=== PATIENT | female | born 1980 | race Caucasian/White ===

== ENCOUNTER 2017-01-30 07:59 | Emergency (ER) | payer BC, SELFPAY ==
[2017-01-30] MEDS ORDERED: Albuterol Sulfate 2.5 mg/0.5 ml Neb ONE (08:09)
[2017-01-30] MEDS ORDERED: Albuterol Sulfate 2.5 mg/3 ml Neb ONE (08:09)
[2017-01-30] MEDS ORDERED: Magnesium Sulfate 2 GM/100 ML BAG ONE (08:13)
[2017-01-30] MEDS ORDERED: methylPREDNISolone Sod Succ/PF 125 MG/2 ML VIAL ONE (08:13)
[2017-01-30] MEDS ORDERED: Water For Inject, Bacteriostat 30 ML ONE (08:14)
--- NOTE | 2017-01-30 09:56 | RAD ---
CHEST 1 VIEW: HISTORY: Dyspnea. Tachypnea. COMPARISON: 03/28/16. FINDINGS: Cardiac silhouette is within normal limits. Mediastinum is midline. Subtle parenchymal opacity at the right middle lobe partially obscures the right cardiac margin. No evidence of pneumothorax. IMPRESSION: Subtle right middle lobe parenchymal opacity may represent atelectasis or infiltrate. Clinical emily elation regarding other signs and symptoms of right middle lobe pneumonitis is required. Please con rotary drier operator close radiographic followup. POS: [facility]
== END 2017-01-30 10:09 | disposition home or self-care (01) ==
LOC: ERS 07:59
DX: J45.901 Unspecified asthma with (acute) exacerbation (principal); J18.9 Pneumonia, unspecified organism; F17.210 Nicotine dependence, cigarettes, uncomplicated; Z79.899 Other long term (current) drug therapy
CPT/HCPCS: 71010; 94640; 94760; 96365; 96375; J2930; J3475; J7611

== ENCOUNTER 2017-05-04 12:57 | Emergency (ER) | payer BC ==
[2017-05-04] MEDS ORDERED: Albuterol Sulfate 2.5 mg/3 ml Neb ONE ×2 (13:31→16:19)
[2017-05-04] MEDS ORDERED: Magnesium Sulfate 2 GM/NS 0.9% 50 ML BAG ONE (13:42)
[2017-05-04] MEDS ORDERED: Dexamethasone 4 mg/ml Vial ONE (13:42)
[2017-05-04 13:43] LABS: #Basophils 0.1 thou/uL (0.0-0.2); #Eosinphils 1.1 thou/uL (0.0-0.7); #Lymphocytes 2.8 thou/uL (1.20-3.40); #Monocytes 0.6 thou/uL (0.11-0.59); #Neutrophils 4.7 thou/uL (1.40-6.50); %Basophils 1.5 % (0.0-1.0); %Eosinophils 11.5 % (0.0-10.0); %Monocytes 6.1 % (0.0-10.0); %Neutrophils 50.8 % (42.0-75.0); Mean Corpuscular HGB CONC 32.4 g/dL (32.0-36.0); Mean Corpuscular Hemoglobin 31.5 pg (27.0-31.0); Mean Corpuscular Volume 97.2 fl (81.0-99.0); Mean Platelet Volume 9.4 fL (7.4-10.4); Platelet Count 291 thou/uL (130-400); RBC Distribution Width 13.4 % (11.5-14.5); Red Blood Cell (RBC) Count 4.76 mill/uL (4.20-5.40); White Blood Cell (WBC) Count 9.3 thou/uL (4.8-10.8)
[2017-05-04 13:47] LABS: Actual Bicarbonate (HCO3a) 22.4 mEq/L (22-26); Base Excess (BEa) -4.5 mEq/L (0 (+/-) 2.5); CO2 Tension 48.6 mmHg (35.0-45.0); Calcium, Ionized 1.3 mmol/L (1.12-1.30); Hematocrit-ABG 43.7 % (36.0-47.0); Hemoglobin (Hb) 14.1 g/dL (12.0-16.0); O2 Tension (PaO2) 117.9 mmHg (80.0-100.0); pH, Arterial 7.28 (7.35-7.45)
[2017-05-04 13:51] LABS: Analyzer IN Cardio ER; Puncture Site RRA
--- NOTE | 2017-05-04 14:07 | RAD ---
FRONTAL RADIOGRAPH CHEST: Date: 05-04-17 Comparison: 03-05-17 History: Difficulty breathing. FINDINGS: There is no pneumothorax or pleural fluid and no focal consolidation or alveolar edema. Heart and med iastinal contours are unremarkable. IMPRESSION: No acute findings. POS: [facility]
[2017-05-04 14:08] LABS: CKMB 2.2 ng/mL (0-6.6); Troponin I Less than 0.010 ng/mL (< 0.028)
[2017-05-04 14:10] LABS: BHCG - Serum Negative (NEGATIVE); Pregs Control Background? CLEAR/WHITE (CLR/WHITE); Pregs Control Bar Appear? YES (CONTROL BAR)
[2017-05-04 14:57] LABS: ALT (SGPT) 15 U/L (8-55); AST (SGOT) 20 U/L (5-34); Alkaline Phosphatase 71 U/L (40-150); Anion Gap 12 mmol/L (10-20); BUN (Urea Nitrogen) 5 mg/dL (7.0-18.7); Bilirubin, Total 0.3 mg/dL (0.2-1.2); CK (CPK) 194 U/L (29-168); Calc. Creatinine Clearance 0 mL/min (70-130); Calcium 9.1 mg/dL (7.8-10.44); Carbon Dioxide 20 mmol/L (22-29); Chloride 113 mmol/L (98-107); Estimated GFR-MDRD 84; Globulin 2.6 g/dL (2.4-3.5); Glucose 112 mg/dL (70-105); Potassium 4.5 mmol/L (3.5-5.1); Protein, Total 6.6 g/dL (6.0-8.3); Sodium 140 mmol/L (136-145)
[2017-05-04 16:45] LABS: Bilirubin Negative (Negative); Blood, Urine Negative (Negative); Clarity CLEAR (Clear); Glucose, Urine (Dipstick) Negative (Negative); Leukocyte Small (Negative); Nitrite Negative (Negative); Protein, Urine (Dipstick) Negative (Neg-Trace); Specific Gravity, Urine 1.019 (1.002-1.036); Urobilinogen 0.2 mg/dL (0.2-1.0)
[2017-05-04 16:49] LABS: Bacteria/HPF None Seen HPF (None Seen); Hyaline Casts/LPF 0-3 HYALINE CAST LPF (0-3 Hyaline); Pathc Cast-AUWi Flag 0.27 (0-2.49); RBC/HPF 0-3 HPF (0-3); Squamous Epithelial 0-3 HPF (0-3)
--- NOTE | 2017-05-27 15:14 | EKG ---
Test Reason : DIFFICULTY BREATHING Blood Pressure : / mmHG Vent. Rate : 138 BPM Atrial Rate : 138 BPM P-R Int : 124 ms QRS Dur : 066 ms QT Int : 286 ms P-R-T Axes : 081 065 -03 degrees QTc Int : 433 ms Sinus tachycardia Possible Left atrial enlargement Nonspecific ST abnormality Abnormal QRS-T angle, consider primary T wave abnormality Abnormal ECG Confirmed by FIDE GOLDBERG, GLEN (12), assistant editor RIC WELLINGTON ([id number]) on 05/27/2017 3:14:15 PM Referred By: Confirmed By:GLEN ELIZALDE MD
== END 2017-05-04 17:05 | disposition left against medical advice (07) ==
LOC: ERS 12:57
DX: J45.901 Unspecified asthma with (acute) exacerbation (principal); F17.210 Nicotine dependence, cigarettes, uncomplicated; Z79.899 Other long term (current) drug therapy
CPT/HCPCS: 36415; 71045; 80053; 81003; 81015; 82553; 82805; 83735; 83880; 84484; 84703; 85025; 87040; 87086; 87804; 93005; 94644; 94660; 94760; 96361; 96365; 96367; 96375; J1100; J1956; J3475; J7611; J7620

== ENCOUNTER 2017-09-17 10:55 | Inpatient (IN) | payer BC, SELFPAY ==
[2017-09-17] MEDS ORDERED: Lorazepam 2 MG/ML VIAL ONE ×2 (11:12→13:27)
[2017-09-17] MEDS ORDERED: Magnesium Sulfate 2 GM/100 ML BAG ONE (11:16)
[2017-09-17] MEDS ORDERED: EPINEPHrine 1 MG/ML AMP ONE (11:24)
[2017-09-17] MEDS ORDERED: Albuterol Sulfate 2.5 mg/0.5 ml Neb ONE (11:25)
[2017-09-17] MEDS ORDERED: Albuterol Sulfate 2.5 mg/3 ml Neb ONE (11:25)
[2017-09-17 11:29] LABS: pH, Arterial 7.23 (7.35-7.45)
[2017-09-17 11:30] LABS: Analyzer IN Cardio ER; Base Excess (BEa) -6.7 mEq/L (0 (+/-) 2.5); CO2 Tension 50.9 mmHg (35.0-45.0); Calcium, Ionized 1.3 mmol/L (1.12-1.30); Hematocrit-ABG 43.5 % (36.0-47.0); Hemoglobin (Hb) 13.9 g/dL (12.0-16.0); O2 Tension (PaO2) 76.4 mmHg (80.0-100.0); Puncture Site RRA
[2017-09-17 11:31] LABS: ALV-art Gradient 116.655 (0-20)
[2017-09-17 12:07] LABS: Mean Corpuscular HGB CONC 32.9 g/dL (32.0-36.0); Mean Corpuscular Hemoglobin 31.3 pg (27.0-31.0); Platelet Count 279 thou/uL (130-400); RBC Distribution Width 12.7 % (11.5-14.5); Red Blood Cell (RBC) Count 4.48 mill/uL (4.20-5.40); White Blood Cell (WBC) Count 22.4 thou/uL (4.8-10.8)
[2017-09-17 12:25] LABS: Lymphocytes 4 % (21-51); MDiff Complete? YES; Monocytes 2 % (0-10); Neutrophil 91 % (42-75)
[2017-09-17 12:26] LABS: ALT (SGPT) 15 U/L (8-55); AST (SGOT) 34 U/L (5-34); Albumin 4.2 g/dL (3.5-5.0); Alkaline Phosphatase 79 U/L (40-150); Anion Gap 12 mmol/L (10-20); BUN (Urea Nitrogen) 8 mg/dL (7.0-18.7); Bilirubin, Total 0.3 mg/dL (0.2-1.2); CK (CPK) 165 U/L (29-168); Calc. Creatinine Clearance 0 mL/min (70-130); Calcium 8.5 mg/dL (7.8-10.44); Carbon Dioxide 20 mmol/L (22-29); Chloride 113 mmol/L (98-107); Estimated GFR-MDRD 83; Globulin 2.6 g/dL (2.4-3.5); Glucose 127 mg/dL (70-105); Potassium 3.7 mmol/L (3.5-5.1); Protein, Total 6.8 g/dL (6.0-8.3); Sodium 141 mmol/L (136-145)
[2017-09-17 12:31] LABS: CKMB 3.2 ng/mL (0-6.6)
--- NOTE | 2017-09-17 13:00 | PDOC.FPRHP ---
- History of Present Illness Chief Complaint: Shortness of breath History of Present Illness: 36 year old female with PMH of asthma that presents with shortness of breath since 02:00 this morning. She immediately started using the duoneb treatments she has at home as this felt like her typical asthma exacerbation. She tried 8 duoneb treatments before calling EMS. The duoneb treatments only helped minimally. In route to ED, patient received several more breathing treatments and steroids. She was placed on BiPAP after arriving to ED and her breathing has improved. Patient states her normal triggers are allergies and stress, both of which she has right now. Her is critically ill and hospitalized in [place], so she has been driving back and forth to see him. The situation is extremely stressful and she feels that this is what has led to her current respiratory status. Patient endorses a cough over the last several weeks, but the cough is no different than her usual cough associated with allergies. She does take an allergy medication. Patient has been out of flovent for the last several days. She does not have a PCP currently. Patient endorses mild chest pain with deep inspiration but denies palpitations. Patient denies N/V/D, abdominal pain, edema, or headache. Patient states she was intubated 5 years ago for asthma exacerbation and was last hospitalized in May. ED Course: Patient was given 0.3 mg epinephrine, 1 L NS bolus, 1 mg ativan, 10 mg albuterol , and 2 g of Mg in ED. She was placed on BiPAP due to declining respiratory status. - Allergies/Adverse Reactions Allergies Allergy/AdvReac Type Severity Reaction Status Date / Time No Known Allergies Allergy Verified 09/17/17 18:44 - Home Medications Medication Instructions Recorded Confirmed Type Albuterol Sulfate [Albuterol 1.25 mg NEB Q4HR PRN 09/01/13 09/17/17 History Sulfate Neb] Albuterol Sulfate HFA (OR) 2 puff FS Q6HR PRN #1 inh 03/07/17 09/17/17 Rx [Proventil Hfa (or)] Budesonide-Formoterol [Symbicort 1 puff INH BID #1 aer 03/07/17 Rx 160-4.5] Fluticasone Propionate [Flovent 2 puff INH BID #1 inhaler 03/07/17 09/17/17 Rx HFA 110 mcg] - History PMHx: Asthma PSHx: None FHx: Mother with HTN Social: Patient endorses smoking 1/2 PPD for last 4 years. She denies illicit drug use. - Review of Systems General: denies: fever/chills, weight/appetite/sleep changes Eyes: denies: eye pain, vision changes ENT: denies: nasal congestion, rhinorrhea Respiratory: reports: cough (similar to cough from allergies), shortness of breath. denies: congestion Cardiovascular: reports: chest pain (with deep inspiration). denies: palpitation, edema Gastrointestinal: denies: nausea, vomiting, diarrhea, abdominal pain Genitourinary: denies: dysuria, polyuria Skin: denies: rashes, lesions, jaundice Musculoskeletal: denies: pain, tenderness, swelling Neurological: reports: weakness. denies: syncope, seizure Psychological: reports: anxiety, depression - Vital signs BP: 152/86 HR: 137 RR: 30 Tmax: 98.7 F Pox: 86% on RA Wt: 81.65 kg - Physical Exam Constitutional: awake, alert and oriented -Constitutional: Moderate respiratory distress, sitting in tripod position on bed. HEENT: normocephalic and atraumatic, EOMI, conjunctiva clear, no scleral icterus , grossly normal hearing Neck: supple, FROM, trachea midline Heart: no murmurs/rubs/gallops, pulses present, no edema -Heart: tachycardia -Lungs: Diffuse wheezing throughout. Rales right upper lung anteriorly. Moderate respiratory distress. No retractions. Abdomen: soft, non-tender, bowel sounds present, no masses/distention Musculoskeletal: normal structure, normal tone, ROM grossly normal Neurological: no focal deficit, CN II-XII intact Skin: no rash/lesions, capillary refill <2 seconds Heme/Lymphatic: no unusual bruising or bleeding, no petechia -Psychiatric: Appears anxious FMR H&P: Results - Labs Result Diagrams: 09/17/17 11:53 09/17/17 11:53 Lab results: WBC 22.4 thou/uL (4.8-10.8) H 09/17/17 11:53 Hgb 14.0 g/dL (12.0-16.0) 09/17/17 11:53 Hct 42.6 % (36.0-47.0) 09/17/17 11:53 MCV 95.0 fl (81.0-99.0) 09/17/17 11:53 Plt Count 279 thou/uL (130-400) 09/17/17 11:53 ABG pH 7.23 (7.35-7.45) L* 09/17/17 11:20 ABG pCO2 50.9 mmHg (35.0-45.0) H 09/17/17 11:20 ABG pO2 76.4 mmHg (80.0-100.0) L 09/17/17 11:20 Sodium 141 mmol/L (136-145) 09/17/17 11:53 Potassium 3.7 mmol/L (3.5-5.1) 09/17/17 11:53 Chloride 113 mmol/L (98-107) H 09/17/17 11:53 Carbon Dioxide 20 mmol/L (22-29) L 09/17/17 11:53 BUN 8 mg/dL (7.0-18.7) 09/17/17 11:53 Creatinine 0.79 mg/dL (0.6-1.1) 09/17/17 11:53 Glucose 127 mg/dL (70-105) H 09/17/17 11:53 Calcium 8.5 mg/dL (7.8-10.44) 09/17/17 11:53 Total Bilirubin 0.3 mg/dL (0.2-1.2) 09/17/17 11:53 AST 34 U/L (5-34) 09/17/17 11:53 ALT 15 U/L (8-55) 09/17/17 11:53 Alkaline Phosphatase 79 U/L (40-150) 09/17/17 11:53 Creatine Kinase 165 U/L (29-168) 09/17/17 11:53 CK-MB (CK-2) 3.2 ng/mL (0-6.6) 09/17/17 11:53 B-Natriuretic Peptide 79.4 pg/mL (0-100) 09/17/17 11:53 Serum Total Protein 6.8 g/dL (6.0-8.3) 09/17/17 11:53 Albumin 4.2 g/dL (3.5-5.0) 09/17/17 11:53 - EKG Interpretation EKG: Sinus tachycardia - Radiology Interpretation Chest x-ray Status: image reviewed by me, report reviewed by me Additional comment: No acute intracranial abnormality FMR H&P: A/P - Problem List (1) Acute respiratory failure with hypoxia Current Visit: No Status: Acute Code(s): J96.01 - ACUTE RESPIRATORY FAILURE WITH HYPOXIA Comment: Continue O2 supplementation, Duonebs, Solumedrol, IV Rocephin and Zithromax (2) Acute asthma exacerbation Current Visit: No Status: Acute Code(s): J45.901 - UNSPECIFIED ASTHMA WITH ( ACUTE) EXACERBATION Qualifiers: Asthma severity: moderate Asthma persistence: persistent Qualified Code(s ): J45.41 - Moderate persistent asthma with (acute) exacerbation (3) Community acquired pneumonia Current Visit: Yes Status: Acute Code(s): J18.9 - PNEUMONIA, UNSPECIFIED ORGANISM (4) Leukocytosis Current Visit: No Status: Acute Code(s): D72.829 - ELEVATED WHITE BLOOD CELL COUNT, UNSPECIFIED (5) Tobacco abuse Current Visit: Yes Status: Acute Code(s): Z72.0 - TOBACCO USE - Plan Acute hypoxic respiratory failure 2/2 asthma exacerbation - Pt on BiPAP - NPO until off BiPAP - Maintenance IVF @ 120 ml/hr Acute asthma exacerbation - On BiPAP - Monitor respiratory status - Wean from BiPAP as tolerated - Admit to ICU for close monitoring - Methylprednisolone 60 mg q6h - Pulmonology consulted; appreciate recs - Continue duoneb and albuterol treatments - Pt may benefit from being started on singulair Possible CAP - Leukocytosis with left shift - Productive cough - Cover with rocephin and azithromycin Leukocytosis - Possibly 2/2 CAP Tobacco abuse - Drug Department Worker on cessation - Consider starting on welbutrin for smoking cessation and potential depression/ anxiety Code status: full DVT ppx: lovenox Dispo: Admit to ICU. Anticipate LOS >48 hours. FMR H&P: Upper Level - Plan Date/Time: 09/17/17 8075 Gretta Fallon, PGY3, have evaluated this patient and agree with findings/plan as outlined by international flight attendant resident. Pertinent changes/additions are listed here. This is a 36yo WF w/ PMH of asthma and previous intubation a few years ago, presents with a few days of SOB, cough, and seasonal allergies, that have progressively getting worse, and work up this am with SOB and coughing but unable to catch her breath which is what brought her to the ER. In the ER, she was hypoxic, diagnosed with acute asthma exacerbation and had a pH of 7.23 and started on BiPAP and given Mag 2g IVPB, Epi 0.3mg IM, and started on a continuous duoneb, as well as 1L NS. PE: Gen: AOx4, Currently requiring BiPAP. Afebrile. CV: Tachycardic, regular. No murmurs Resp: + wheezing diffusely, diminished airmovement. In tripod positioning Abd: [id number]. Ext: No LE edema bilaterally Skin: No rash. A/P: 1) Acute hypoxic respiratory Failure 2/2 asthma exacerbation - Admit patient to the ICU for close monitoring. Wean off bipap as tolerating. Steroids, Duonebs ARNULFO, Albuterol PRN. S/p Mag and Epi. Consult Director Of Marketing Operations Dr. Riley. 2) Acute Asthma exacerbation - Continue Duonebs, Wean off bipap, Albuterol PRN, Steroids 3) Tobacco abuse - Drug Department Worker on cessation 4) Leukocytosis - Possibly 2/2 respiratory infection. Start antibiotics.
[2017-09-17 13:10] LABS: Actual Bicarbonate (HCO3a) 18.1 mEq/L (22-26); Base Excess (BEa) -6.6 mEq/L (0 (+/-) 2.5); CO2 Tension 33.9 mmHg (35.0-45.0); Hematocrit-ABG 40.4 % (36.0-47.0); pH, Arterial 7.35 (7.35-7.45)
[2017-09-17 13:11] LABS: ALV-art Gradient 81.265 (0-20); Analyzer IN Cardio ER; Calcium, Ionized 1.2 mmol/L (1.12-1.30); Puncture Site RRA
--- NOTE | 2017-09-17 13:23 | RAD ---
PORTABLE CHEST: Date: 09/17/17 HISTORY: Dyspnea. COMPARISON: 05/04/17. FINDINGS: Heart size and mediastinum are within normal limits. The lungs are clear of any infiltrative process. No significant bony findings. IMPRESSION: No active intrathoracic disease. POS: [facility]
[2017-09-17] MEDS ORDERED: Terbutaline Sulfate 1 MG/ML VIAL SC STA (14:20)
[2017-09-17] MEDS ORDERED: Morphine 4 MG/ML VIAL ONE (15:46)
[2017-09-17] MEDS ORDERED: Acetaminophen 325 MG TAB PO PRN (16:06)
[2017-09-17] MEDS ORDERED: Ondansetron HCl/PF 4 MG/2 ML Vial IVP PRN ×2 (16:06→16:27)
[2017-09-17] MEDS ORDERED: Ondansetron ODT 4 MG TAB SL PRN (16:06)
[2017-09-17] MEDS ORDERED: methylPREDNISolone Sod Succ/PF 125 MG/2 ML VIAL IVP SCH (16:15)
[2017-09-17] MEDS ORDERED: Albuterol Sulfate 1.25 MG/3 ML NEB NEB PRN (16:27)
[2017-09-17] MEDS ORDERED: Ondansetron ODT 4 MG TAB PO PRN (16:27)
[2017-09-17] MEDS ORDERED: Magnesium Sulfate 4 GM in Sodium Chloride 0.9% 250 ML 250 ML IVPB SCH ×2 (16:30→16:45)
[2017-09-17] MEDS: Lactated Ringer's 1,000 ML IV SCH (16:45)
[2017-09-17 16:49] VITALS: BMI 29.0
[2017-09-17] MEDS ORDERED: Azithromycin 500 MG in Sodium Chloride 0.9% 250 ML 250 ML IVPB SCH (17:00)
[2017-09-17] MEDS: methylPREDNISolone Sod Succ/PF 125 MG/2 ML VIAL IVP SCH (17:34)
[2017-09-17] MEDS ORDERED: cefTRIAXone\\ROCEPHIN 1 GM in Sodium Chloride 0.9% 100 ML IVPB SCH (18:00)
[2017-09-17] MEDS: Lorazepam 2 MG/ML VIAL SLOW IVP PRN ×2 (18:02→22:11)
[2017-09-17 18:46] LABS: Amphetamine Not Detected (NotDetected); Barbiturates Screen Not Detected (NotDetected); Benzodiazepine Screen Not Detected (NotDetected); Cocaine Metabolite Screen Not Detected (NotDetected); Medtox Control Line Valid? VALID (VALID); Medtox Reader # READER 1; Methadone Not Detected (NotDetected); Methamphetamine Not Detected (NotDetected); Opiate Screen Detected (NotDetected); Oxycodone Screen Not Detected (NotDetected); Phencyclidine (PCP) Not Detected (NotDetected); THC/Cannabinoid Screen Not Detected (NotDetected); Tricyclic Screen Not Detected (NotDetected)
--- NOTE | 2017-09-17 20:34 | CON ---
DATE OF CONSULTATION: 09/17/2017 40 minutes of critical care time. REASON FOR CONSULTATION: Status asthmaticus. HISTORY OF PRESENT ILLNESS: This is a 36-year-old female, who presented to the emergency room with 2 days of increasing shortness of breath. She states that she has been smoking about half pack per da y. She has been hospitalized several times for asthma in the past. She has been seen by both Dr. Alarcon in and Dr. Zepeda in the past. She has not ever visited the office. She does not take her asthma m edication regularly. She has been stressed out about her being in the hospital in [place]. PAST MEDICAL HISTORY: 1. Chronic persistent asthma/COPD. 2. Multiple episodes of previous respiratory failure. PAST SURGICAL HISTORY: 1. Cholecystectomy. 2. Tubal ligation. SOCIAL HISTORY: Smokes half pack per day. Does not use illicit drugs. Does not consume alcohol. FAMILY MEDICAL HISTORY: Unremarkable. ALLERGIES: None. MEDICATIONS PRIOR TO ADMISSION: Albuterol, Symbicort, doxycycline, fluticasone, supposed to be takin g prednisone but has not been doing that. REVIEW OF SYSTEMS: Twelve-point review of systems otherwise negative. PHYSICAL EXAMINATION: VITAL SIGNS: Pulse is running in the low 100s, blood pressure 120/70, respiratory rate 24, O2 sat 95 % on BiPAP. She is sitting. GENERAL: Appears to be in mild respiratory discomfort. HEENT: Pupils react. Sclerae anicteric. Oropharynx clear. NECK: No adenopathy or JVD. LUNGS: Bilateral mild expiratory wheezing. CARDIOVASCULAR: S1, S2, slightly tachycardic. No murmur. ABDOMEN: Soft, nontender, nondistended. EXTREMITIES: No clubbing, cyanosis, edema. NEUROLOGIC: Moves all 4 extremities, good sensation throughout. LABORATORY DATA: Initial blood gas pH 7.23, pCO2 of 50, pO2 of 76 after being on BiPAP. Blood gas p H 7.35, PCO2 of 33, PO2 of 76. White blood cell count 22.4, hematocrit 42.6, platelet count 279.: S odium 141, potassium 3.7, chloride 113, CO2 of 20, BUN 8, creatinine 0.7, glucose 127. Chest x-ray d emonstrates hyperinflation without evidence of mass, effusion, or infiltrate. ASSESSMENT: 1. Status asthmaticus. 2. Acute respiratory failure. 3. Chronic obstructive pulmonary disease/asthma. 4. Tobacco abuse. PLAN: Agree with BiPAP, steroids, nebulization treatments, and antibiotics. I will go ahead and giv e her a dose of magnesium sulfate. Dr. Dwyer seen her in the past and he will resume care tomorrow.
[2017-09-18] MEDS: methylPREDNISolone Sod Succ/PF 125 MG/2 ML VIAL IVP SCH ×3 (00:09→11:23)
[2017-09-18] MEDS: Lactated Ringer's 1,000 ML IV SCH ×2 (00:15→10:05)
[2017-09-18 04:32] LABS: Anion Gap 12 mmol/L (10-20); BUN (Urea Nitrogen) 6 mg/dL (7.0-18.7); Calc. Creatinine Clearance 144 mL/min (70-130); Calcium 8.7 mg/dL (7.8-10.44); Carbon Dioxide 18 mmol/L (22-29); Chloride 113 mmol/L (98-107); Estimated GFR-MDRD Greater than 90; Glucose 164 mg/dL (70-105); Potassium 3.8 mmol/L (3.5-5.1); Sodium 139 mmol/L (136-145)
[2017-09-18 04:37] LABS: Band 15 % (5-11); Hemoglobin 12.4 g/dL (12.0-16.0); Lymphocytes 3 % (21-51); MDiff Complete? YES; Mean Corpuscular HGB CONC 32.7 g/dL (32.0-36.0); Mean Corpuscular Hemoglobin 30.9 pg (27.0-31.0); Mean Corpuscular Volume 94.5 fl (81.0-99.0); Metamyelocyte 1 % (0-0); Neutrophil 81 % (42-75); PLT Morphology Comment Appears Adequate; Platelet Count 236 thou/uL (130-400); Red Blood Cell (RBC) Count 4.03 mill/uL (4.20-5.40); White Blood Cell (WBC) Count 23.2 thou/uL (4.8-10.8)
--- NOTE | 2017-09-18 08:15 | ADD-HP ---
ADDENDUM Please see the full history and physical done by the manager of internal, which I have reviewed. The patient is s een, evaluated and examined with the residents at bedside and also discussed with Dr. Riley, Pulmon ology. HISTORY OF PRESENT ILLNESS: This is a 36-year-old white female with a history of asthma, who does no t have a primary care doctor. It is unclear how compliant she is on her maintenance medicines. She states she supposed to be Flovent but maybe recently ran out. Recently for a week has had increasing cough, shortness of breath, wheezing, and giving herself almost continuous nebulizers at home and did not improve, so came into the ER magnesium, epinephrine, numerous nebulizers and was put on Bi PAP and has improved somewhat. Her pH went from 7.2 to 7.34. Past medical history, family history, surgical history, medications and review of systems are all per the resident's history and physical. OBJECTIVE: GENERAL: On BiPAP, sitting upright, slightly tachypneic. HEENT: Conjunctivae not pale. Sclerae anicteric, slightly dry, but hard to tell because she is wear ing a BiPAP. CHEST: Has scattered wheezes, feels tight. CARDIOVASCULAR: Tachycardic, pulse rate right around 105-110, but regular. ABDOMEN: Benign. EXTREMITIES: Show no edema. LABORATORY AND DIAGNOSTIC DATA: White count is slightly elevated. Chest x-ray shows some scattered changes. No definite infiltrate. ASSESSMENT AND PLAN: Asthma exacerbation. Plan is to admit to the ICU on BiPAP. Give plenty of IV fluids, nebulizers p.r.n., will give oxygen as needed, although she is saturating fine right now. Pu lmonary is involved. I will continue magnesium. Add a proton pump inhibitor and steroids.
--- NOTE | 2017-09-18 08:24 | PDOC.FM ---
- Subjective Subjective: Patient is feeling improved today, but visibly teraful about events at home. Stated she has lost contact with her primary care, has not picked up her asthma medication due to taking care of her at home, who had major surgery done. She denied fever, chills, pain, still endorses SOB. - Objective MAR Reviewed: Yes Vital Signs & Weight: Vital Signs (12 hours) Temp Pulse Resp Pulse Ox 09/18/17 06:36 99 09/18/17 06:33 112 H 18 99 09/18/17 02:35 82 24 H 95 09/18/17 00:51 94 19 09/18/17 00:00 98.6 F 09/17/17 22:16 74 22 H 96 Weight Admit Weight 81.5 kg Weight 81.5 kg Most Recent Monitor Data Heart Rate from ECG 54 NIBP 86/33 NIBP BP-Mean 44 Respiration from ECG 17 SpO2 97 I&O: 09/17/17 09/18/17 09/19/17 06:59 06:59 06:59 Intake Total 2354 Output Total 2400 Balance -46 Result Diagrams: 09/18/17 03:25 09/18/17 03:25 <Wicho Bergeron M - Last Filed: 09/18/17 10:08> - Objective Vital Signs & Weight: Vital Signs (12 hours) Temp Pulse Resp Pulse Ox 09/18/17 08:00 98.7 F 09/18/17 06:36 99 09/18/17 06:33 112 H 18 99 09/18/17 02:35 82 24 H 95 09/18/17 00:51 94 19 09/18/17 00:00 98.6 F Weight Admit Weight 81.5 kg Weight 81.5 kg Most Recent Monitor Data Heart Rate from ECG 83 NIBP 110/56 NIBP BP-Mean 72 Respiration from ECG 22 SpO2 96 I&O: 09/17/17 09/18/17 09/19/17 06:59 06:59 06:59 Intake Total 2354 480 Output Total 2400 800 Balance -46 -320 Result Diagrams: 09/18/17 03:25 09/18/17 03:25 <Oscar Varghese R - Last Filed: 09/18/17 10:44> Phys Exam - Physical Examination Constitutional: NAD HEENT: moist MMs Neck: no nodes, supple Respiratory: wheezing present Cardiovascular: RRR, no significant murmur Gastrointestinal: soft, non-tender, no distention Musculoskeletal: no edema Neurological: non-focal, moves all 4 limbs Lymphatic: no nodes Deviation from normal: Anxious/sad appearing Skin: normal turgor, cap refill <2 seconds <Wicho Bergeron M - Last Filed: 09/18/17 10:08> Dx/Plan (1) Community acquired pneumonia Code(s): J18.9 - PNEUMONIA, UNSPECIFIED ORGANISM Status: Acute Plan: Procalcitonin negative, WBC up but may be due to marginalization, has 15% band, CXR clear Overnight, patient has no fever, weaning off of O2 support Less likely this is CAP at this point, but as patient is already on ABX, may consider continuing azithromycin for 4 more days (2) Tobacco abuse Code(s): Z72.0 - TOBACCO USE Status: Acute Plan: Patient is tachycardic, anxious, consider tobacco withdrawal Start patient on nicotine TD patch at this time. Advised as outpatient, establish with PCP, may consider other treatments plan at that time. (3) Acute asthma exacerbation Code(s): J45.901 - UNSPECIFIED ASTHMA WITH (ACUTE) EXACERBATION Status: Acute QualifierTitle: Asthma severity: moderate Asthma persistence: persistent Qualified Code(s): J45.41 - Moderate persistent asthma with (acute) exacerbation Plan: Overall improving. Patient was able to hold conversation, is now on NC. Still has wheezing and tachycardic, using oxygen, receiving duoneb q2hr Plan, continue treatment, weaning patient off of O2, may consider transfer off [facility]. (4) Acute respiratory failure with hypoxia Code(s): J96.01 - ACUTE RESPIRATORY FAILURE WITH HYPOXIA Status: Acute Plan: Improving, not on Bipap. <Wicho Bergeron M - Last Filed: 09/18/17 10:08> Attending Addendum - Attending Addendum Date/Time: 09/18/17 1041 I personally evaluated the patient and discussed the management with Dr. Bergeron. I agree with the History, Examination, Assessment and Plan documented above with any addition or exceptions noted below. Patient with high normal sats on nasal cannula, and as it is not being used properly, she is probably doing well on room air. Will work to decrease supplemental O2 use today. Continue inhaled steroids and albuterol for her still fairly significant wheezing. Would transition 60mgq6 methylpred to PO Pred 40mg isabella beginning tomorrow. She is stable for transfer out of CCU. Her leukocytosis is likely due to demargination from epinephrine and some steroid effect. No evidence of infection, and CXR is not consistent with CAP. PCT 0.1, suggesting against antibiotic therapy. Consider discontinuing them in conjunction with Pulmonary. If does well through the day, likely stable for discharge tomorrow. <Oscar Varghese - Last Filed: 09/18/17 10:44>
[2017-09-18] MEDS: Enoxaparin Sodium 40 MG/0.4 ML SYRINGE SC SCH (08:32)
[2017-09-18] MEDS: Lorazepam 2 MG/ML VIAL SLOW IVP PRN ×2 (08:33→14:14)
--- NOTE | 2017-09-18 09:02 | PRG ---
DATE OF SERVICE: 09/18/2017 This morning she says she is feeling somewhat better. No cough, no wheezing, no chest pain. PHYSICAL EXAMINATION: VITAL SIGNS: Sats are 90% on room air, pulse 88, blood pressure 108/80, respirations 18. CHEST: Chest revealed diffuse wheezing. Expiration prolonged. CARDIAC: Sinus tachycardia. ABDOMEN: Abdomen is soft. NEURO: Neurologically, she is awake and responsive. EXTREMITIES: No edema. Chest x-ray on admission was normal. X-ray was normal. Her white count this morning is 23,000, H&H 12 and 38, platelet count is normal and renal functions are normal. IMPRESSION: 1. Asthma. 2. Chronic obstructive pulmonary disease exacerbation. 3. Ongoing tobacco abuse. PLAN: I added Ana and Harsh to her present neb treatments. She can probably be transferred o sc of the ICU later on the day if she is stable. I will follow.
[2017-09-18] MEDS: Nicotine 7 MG PATCH TD SCH (11:18)
[2017-09-18] MEDS: Acetaminophen 325 MG TAB PO PRN (11:22)
[2017-09-18] MEDS ORDERED: [UNRECOGNIZED DRUG - OTHER] IVPB SCH (16:00)
[2017-09-18] MEDS ORDERED: ADMIXTURE FEE CHEMO IVPB SCH (16:00)
[2017-09-18] MEDS ORDERED: AZITHROMYCIN IVPB SCH (16:00)
[2017-09-18] MEDS: Mometasone/Formoterol 120 PUFF INHALER INH SCH (18:24)
[2017-09-18] MEDS ORDERED: Montelukast Sodium 10 mg Tablet PO SCH (21:00)
[2017-09-19] MEDS: Acetaminophen 325 MG TAB PO PRN (00:27)
[2017-09-19] MEDS: Mometasone/Formoterol 120 PUFF INHALER INH SCH (06:37)
[2017-09-19] MEDS ORDERED: predniSONE 20 MG TAB PO SCH ×2 (08:00)
--- NOTE | 2017-09-19 08:23 | PDOC.FM ---
- Subjective Subjective: Patient feels improved, says she's ready to go home. Overnight, no acute issue. Patient denies dypsnea, fever. - Objective MAR Reviewed: Yes Vital Signs & Weight: Vital Signs (12 hours) Temp Pulse Resp BP Pulse Ox 09/19/17 05:48 97.5 F L 54 L 16 102/66 98 09/19/17 02:23 55 L 22 H 98 09/19/17 00:48 99 09/18/17 23:10 59 L 20 99 09/18/17 20:30 98 F 78 18 109/66 97 Weight Admit Weight 81.5 kg Weight 81.5 kg Most Recent Monitor Data Heart Rate from ECG 82 NIBP 115/57 NIBP BP-Mean 82 Respiration from ECG 18 SpO2 96 I&O: 09/18/17 09/19/17 09/20/17 06:59 06:59 06:59 Intake Total 2354 2296 Output Total 2400 1875 Balance -46 421 Result Diagrams: 09/18/17 03:25 09/18/17 03:25 <Wicho Bergeron M - Last Filed: 09/19/17 10:11> - Objective Vital Signs & Weight: Vital Signs (12 hours) Temp Pulse Resp BP Pulse Ox 09/19/17 08:00 98.2 F 72 16 114/64 100 09/19/17 05:48 97.5 F L 54 L 16 102/66 98 09/19/17 02:23 55 L 22 H 98 09/19/17 00:48 99 09/18/17 23:10 59 L 20 99 Weight Admit Weight 81.5 kg Weight 81.5 kg Most Recent Monitor Data Heart Rate from ECG 82 NIBP 115/57 NIBP BP-Mean 82 Respiration from ECG 18 SpO2 96 I&O: 09/18/17 09/19/17 09/20/17 06:59 06:59 06:59 Intake Total 2354 2296 Output Total 2400 1875 Balance -46 421 Result Diagrams: 09/18/17 03:25 09/18/17 03:25 <Oscar Varghese R - Last Filed: 09/19/17 11:10> Phys Exam - Physical Examination Constitutional: NAD HEENT: moist MMs Neck: supple Respiratory: wheezing present Reduce wheezing from previous day Cardiovascular: RRR Gastrointestinal: soft, no distention Musculoskeletal: no edema Neurological: non-focal, moves all 4 limbs Lymphatic: no nodes <Wicho Bergeron M - Last Filed: 09/19/17 10:11> Dx/Plan (1) Community acquired pneumonia Code(s): J18.9 - PNEUMONIA, UNSPECIFIED ORGANISM Status: Acute Plan: Overnight, no fever, breathing continues to improve Plan, dc abx, unlikely to be infectious cause for her respiratory distress. (2) Tobacco abuse Code(s): Z72.0 - TOBACCO USE Status: Acute Plan: Patient not interested yet in quitting. Advised to follow up with PCP to discuss this later (3) Acute asthma exacerbation Code(s): J45.901 - UNSPECIFIED ASTHMA WITH (ACUTE) EXACERBATION Status: Acute QualifierTitle: Asthma severity: moderate Asthma persistence: persistent Qualified Code(s): J45.41 - Moderate persistent asthma with (acute) exacerbation Plan: Overnight, has improved, but some supplemental o2 was added by nursing. Patient O2 was 98-99% on 2L Plan, dc O2, monitor, and if continues to do well, dc home with new script for home med and addition of singulair and oral steroid and asthma action plan (4) Acute respiratory failure with hypoxia Code(s): J96.01 - ACUTE RESPIRATORY FAILURE WITH HYPOXIA Status: Acute Plan: At this time, resolved issue. <Wicho Bergeron M - Last Filed: 09/19/17 10:11> Attending Addendum - Attending Addendum Date/Time: 09/19/17 1850 I personally evaluated the patient and discussed the management with Dr. Bergeron. I agree with the History, Examination, Assessment and Plan documented above with any addition or exceptions noted below. Patient doing well. She is off supplemental O2 and feels well. Continues to have wheezing. She has issues affording her inhalers due to other medical expenses, will see if we can get her some assistance. Otherwise she is stable for discharge with med refills and steroid course. <Oscar Varghese - Last Filed: 09/19/17 11:10>
[2017-09-19 08:59] VITALS: BP 114/64; TEMP 98.2
[2017-09-19] MEDS: Enoxaparin Sodium 40 MG/0.4 ML SYRINGE SC SCH (09:23)
[2017-09-19] MEDS: Nicotine 7 MG PATCH TD SCH (09:23)
--- NOTE | 2017-09-19 09:31 | PRG ---
DATE OF SERVICE: 09/19/2017 She is doing well, awake and responsive. She went down to smoke. PHYSICAL EXAMINATION: VITAL SIGNS: Sats are 90% on room air, temperature 97, pulse 54, blood pressure 102/66. CHEST: Chest reveals decreased breath sounds, no wheezing. CARDIAC: Normal S1, S2. No gallops. ABDOMEN: Soft, no masses. IMPRESSION: 1. Bronchial asthma exacerbation. 2. Bronchitis. PLAN: She can be discharged home. Once again she was told to refrain from smoking. Taper prednison e over 10 days. Baseline home medicine, Symbicort twice a day, Singulair 10. Rescue inhaler as need ed.
--- NOTE | 2017-09-19 14:15 | DIS-2 ---
DATE OF ADMISSION: 09/17/2017 DATE OF DISCHARGE: 09/19/2017 ADMITTING ATTENDING: Dr. Moi Woodruff. DISCHARGE ATTENDING: Dr. Oscar Varghese. RESIDENT: Dr. Wicho Bergeron. CONSULTS: Dr. Reji Dwyer, Pulmonology. STUDIES: Chest x-ray on 09/17/2017 IMPRESSION: No active intrathoracic disease. PRIMARY DIAGNOSES: 1. Acute respiratory failure. 2. Acute asthma exacerbation. SECONDARY DIAGNOSES: 1. Tobacco abuse. 2. Leukocytosis. DISCHARGE MEDICATIONS: 1. Albuterol sulfate 1.25 mg nebulizer p.r.n. every 4 hours for shortness of breath. 2. Proventil 2 puffs every 6 hours p.r.n. for shortness of breath. 3. Symbicort 2 puffs inhalation twice a day. 3. Fluticasone propionate 2 puffs inhalation twice a day. 4. Prednisone 40 mg p.o. q.a.m. HISTORY OF PRESENT ILLNESS AND HOSPITAL COURSE: This is a 36-year-old female with known history of asthma and previous asthma exacerbation requiring hospitalization, who presented to the ER for being short of breath, requiring BiPAP initially. The cause for her shortness of breath, was that she had ran out for asthma medications; however, due to both financial stresses and time constraint, she was unable to see her PCP and ran out of her medication approximately 1 month ago. On the day of admission, she said that she felt much more anxiety than normal and that this was apparent trigger for it. Upon admission, her WBC was found to be elevated at 22.4, though may have also been due to steroid use it as for asthma treatment. Her blood gas was initially pH of 7.23, but it was improved to 7.35 after BiPAP treatment. Her CO2 went from 50.9-33.9 and her O2 stayed steady at 76. Tropes and BNP were both negative as was procalcitonin. Toxicology results found only opiates; however, she was given an opiod anti-anxiolytic. She spent the first night in the ICU where she had marked improvement, but still had diffuse wheezing throughout. She was eventually weaned off her BiPAP onto nasal cannula that day. The next day, she was transferred to the medical floor where she had steady improvement and felt that she could go home after spending one night on the medical floor. She was discharged with a refill on all for home medication sent electronically to her pharmacy as well as a new script for oral steroids. Initially she was to be sent home on Singulair, but patient said that she tried in the past and did not think it was work. An asthma action plan was discussed with the patient and the patient agrees to reestablish herself with a PCP as for her leukocytosis likely a side effect of steroids. As for her tobacco abuse, she was counseled extensively on this. However, she declined to have any tobacco cessation product at this time, but states that she will follow up with her PCP. On the time of discharge, her admitting issue of asthma exacerbation had resolved. DISPOSITION: Stable DISCHARGE INFORMATION: 1. Location: To home. 2. Followup: Follow up with reestablish with a PCP within a week. 3. Diet: As tolerated. 4. Activity: As tolerated. MTDD
== END 2017-09-19 11:09 | disposition home or self-care (01) | DRG 189 ==
LOC: ERS 10:55 → CCU 16:23 → T4-B 09-18 14:59
PROVIDERS: ADMIT Family Medicine; ATTEND Family Medicine
PROC: 5A09357 Assistance with Respiratory Ventilation, Less than 24 Consecutive Hours, Continuous Positive Airway Pressure (ICD-10-PCS; principal; 2017-09-17)
DX: J96.01 Acute respiratory failure with hypoxia (principal); J45.901 Unspecified asthma with (acute) exacerbation; J44.1 Chronic obstructive pulmonary disease with (acute) exacerbation; J40 Bronchitis, not specified as acute or chronic; F17.210 Nicotine dependence, cigarettes, uncomplicated; D72.829 Elevated white blood cell count, unspecified; Z79.899 Other long term (current) drug therapy; Z79.51 Long term (current) use of inhaled steroids
CPT/HCPCS: 36415; 71045; 80048; 80053; 80306; 82553; 82805; 83880; 84145; 84484; 85025; 93005; 94640; 94644; 94660; 96361; 96365; 96372; 96375; 96376; J0171; J0456; J0696; J1650; J2060; J2270; J2930; J3105; J3475; J7050; J7506; J7611; J7620

== ENCOUNTER 2018-01-08 19:03 | Emergency (ER) | payer BC ==
--- NOTE | 2018-01-08 20:03 | RAD ---
LEFT KNEE FOUR VIEWS: 01/08/2018 HISTORY: Injury to left knee. The patient twisted the left knee a few days ago. COMPARISON: 09/01/2015 FINDINGS: There is no evidence of a fracture, dislocation, or other osseous abnormality involving the left knee . Overlying brace material does mildly limited osseous detail. There has been no significant interv al change from prior exam. IMPRESSION: No acute osseous abnormality, left knee. POS: [facility]
[2018-01-08] MEDS ORDERED: Ketorolac Tromethamine 60 MG/2 ML VIAL ONE (20:40)
== END 2018-01-08 20:59 | disposition home or self-care (01) ==
LOC: ERS 19:03
DX: M25.562 Pain in left knee (principal); J45.909 Unspecified asthma, uncomplicated; F17.210 Nicotine dependence, cigarettes, uncomplicated; Z79.899 Other long term (current) drug therapy
CPT/HCPCS: 96372; J1885

== ENCOUNTER 2018-03-10 22:56 | Inpatient (IN) | payer BC ==
[2018-03-10 23:24] LABS: #Basophils 0.1 thou/uL (0.0-0.2); #Eosinphils 0.4 thou/uL (0.0-0.7); #Lymphocytes 2.7 thou/uL (1.20-3.40); #Neutrophils 10.3 thou/uL (1.40-6.50); %Basophils 0.6 % (0.0-1.0); %Eosinophils 2.5 % (0.0-10.0); %Lymphocytes 18.5 % (21.0-51.0); %Monocytes 6.8 % (0.0-10.0); %Neutrophils 71.6 % (42.0-75.0); Hemoglobin 14.4 g/dL (12.0-16.0); Mean Corpuscular HGB CONC 32.4 g/dL (32.0-36.0); Mean Corpuscular Volume 95.4 fL (78.0-98.0); Mean Platelet Volume 8.6 fL (7.4-10.4); Platelet Count 258 thou/uL (130-400); RBC Distribution Width 12.7 % (11.5-14.5); Red Blood Cell (RBC) Count 4.66 mill/uL (4.20-5.40); White Blood Cell (WBC) Count 14.3 thou/uL (4.8-10.8)
[2018-03-10] MEDS ORDERED: Lidocaine Viscous Sol 2% 15 ml UD Cup ONE (23:32)
[2018-03-10] MEDS ORDERED: Mag-Al 1200 mg/1200 mg/30 ML UDCUP ONE (23:32)
[2018-03-10] MEDS ORDERED: Morphine 4 MG/ML VIAL ONE (23:32)
[2018-03-10] MEDS ORDERED: Ondansetron PF 4 MG/2 ML Vial ONE (23:32)
[2018-03-10 23:44] LABS: ALT (SGPT) 654 U/L (8-55); AST (SGOT) 602 U/L (5-34); Albumin 4.2 g/dL (3.5-5.0); Alkaline Phosphatase 248 U/L (40-150); Anion Gap 15 mmol/L (10-20); BUN (Urea Nitrogen) 5 mg/dL (7.0-18.7); Bilirubin, Total 2.3 mg/dL (0.2-1.2); Calc. Creatinine Clearance 0 mL/min (70-130); Calcium 9.4 mg/dL (7.8-10.44); Carbon Dioxide 19 mmol/L (22-29); Chloride 108 mmol/L (98-107); Estimated GFR-MDRD 82; Globulin 2.7 g/dL (2.4-3.5); Glucose 113 mg/dL (70-105); Potassium 3.8 mmol/L (3.5-5.1); Protein, Total 6.9 g/dL (6.0-8.3); Sodium 138 mmol/L (136-145)
[2018-03-10 23:59] LABS: Lipase 6598 U/L (8-78)
[2018-03-11] MEDS ORDERED: Ketorolac Tromethamine 30 MG/ML VIAL ONE (00:11)
[2018-03-11 00:44] LABS: Bilirubin Moderate (Negative); Blood, Urine Negative (Negative); Clarity CLEAR (Clear); Glucose, Urine (Dipstick) Negative (Negative); Leukocyte Negative (Negative); Nitrite Negative (Negative); Protein, Urine (Dipstick) Negative (Neg-Trace); Specific Gravity, Urine 1.014 (1.002-1.036)
[2018-03-11 00:50] LABS: Pregnancy Test - Urine (BHCG) Negative (Negative); Pregu Control Background? CLEAR/WHITE (CLR/WHITE); Pregu Control Bar Appear? YES (CONTROL BAR); Specific Gravity 1.014 (1.002-1.036)
[2018-03-11] MEDS ORDERED: Sodium Chloride 0.9% 1,000 ML IV SCH (03:45)
[2018-03-11] MEDS ORDERED: Morphine 2 MG/ML SYRINGE SLOW IVP PRN (03:46)
[2018-03-11] MEDS ORDERED: Ondansetron PF 4 MG/2 ML Vial SLOW IVP PRN (04:17)
[2018-03-11 04:31] VITALS: BMI 30.1
[2018-03-11] MEDS ORDERED: Artificial Tear Sol 15 ML BOT EA EYE PRN (07:41)
[2018-03-11] MEDS ORDERED: Senokot S 8.6-50 MG TAB PO PRN (07:41)
[2018-03-11] MEDS ORDERED: Acetaminophen 325 MG TAB PO PRN (07:41)
[2018-03-11] MEDS ORDERED: Ondansetron ODT 4 MG TAB PO PRN (07:41)
[2018-03-11] MEDS ORDERED: Zolpidem Tartrate 5 MG TAB PO PRN (07:41)
[2018-03-11] MEDS ORDERED: Bisacodyl 5 MG TAB PO PRN (07:41)
[2018-03-11] MEDS ORDERED: Bisacodyl 10 MG SUPP PR PRN (07:41)
[2018-03-11] MEDS ORDERED: Cepastat Lozenges 1 LOZ PO PRN (07:41)
[2018-03-11] MEDS ORDERED: Eucerin (Mineral Oil/Petrolatum,White) 30 gm Jar TOP PRN (07:41)
[2018-03-11] MEDS ORDERED: Sodium Chloride 0.65% Nasal 44 ML BOT EA NARE PRN (07:41)
[2018-03-11] MEDS ORDERED: hydrALAZINE 20 MG/ML VIAL SLOW IVP PRN (07:41)
[2018-03-11] MEDS ORDERED: Loperamide HCl 2 MG CAP PO PRN (07:41)
[2018-03-11] MEDS ORDERED: Ondansetron PF 4 MG/2 ML Vial IVP PRN (07:41)
[2018-03-11] MEDS ORDERED: Diabetic Tussin 200 MG/10 ML UDCUP PO PRN (07:41)
[2018-03-11] MEDS: Enoxaparin Sodium 40 MG/0.4 ML SYRINGE SC SCH (08:22)
[2018-03-11] MEDS: Pantoprazole 40 MG VIAL IVP SCH (08:22)
[2018-03-11] MEDS: NS 0.9% w/ 20 MEQ KCL 1,000 ML/1,000 ML BAG IV SCH ×4 (08:23→22:25)
[2018-03-11 08:30] LABS: ALT (SGPT) 493 U/L (8-55); AST (SGOT) 309 U/L (5-34); Albumin 3.5 g/dL (3.5-5.0); Alkaline Phosphatase 201 U/L (40-150); Anion Gap 8 mmol/L (10-20); BUN (Urea Nitrogen) 4 mg/dL (7.0-18.7); Calc. Creatinine Clearance 155 mL/min (70-130); Calcium 8.4 mg/dL (7.8-10.44); Carbon Dioxide 22 mmol/L (22-29); Cardiac Risk 3.2 (Less than 4.5); Chloride 113 mmol/L (98-107); Cholesterol 137 mg/dl (< 200 Desired); Estimated GFR-MDRD Greater than 90; Globulin 2.1 g/dL (2.4-3.5); Glucose 93 mg/dL (70-105); HDL Cholesterol 43 mg/dL (>60 Neg Risk); LDL Cholesterol, Calculated 79 mg/dL; Phosphorus 2.8 mg/dL (2.3-4.7); Potassium 4.2 mmol/L (3.5-5.1); Protein, Total 5.6 g/dL (6.0-8.3); Sodium 139 mmol/L (136-145); Triglycerides 76 mg/dL (Less than 150)
[2018-03-11] MEDS: Morphine 4 MG/ML VIAL SLOW IVP PRN ×2 (08:31→12:43)
[2018-03-11 08:49] LABS: HBCM Index 0.08 S/CO (0-0.79); HBSAg Index 0.19 S/CO (0-0.99); Hep A IgM AB Non-Reactive (NonReactive); Hep B Surf Ag Non-Reactive S/CO (NonReactive); Hep C IgG Ab Non-Reactive (NonReactive); Hep C Index 0.16 S/CO (0-0.79); Hepatitis B Core IgM Abs Non-Reactive (NonReactive)
[2018-03-11] MEDS ORDERED: Famotidine/PF 20 mg/2ml Vial SLOW IVP SCH (09:00)
[2018-03-11 09:42] LABS: Bilirubin Small (Negative); Blood, Urine Negative (Negative); Clarity CLOUDY (Clear); Glucose, Urine (Dipstick) Negative (Negative); Leukocyte Small (Negative); Nitrite Negative (Negative); Protein, Urine (Dipstick) Negative (Neg-Trace); Specific Gravity, Urine 1.017 (1.002-1.036)
[2018-03-11 09:43] LABS: Bacteria/HPF None Seen HPF (None Seen); Hyaline Casts/LPF 0-3 HYALINE CAST LPF (0-3 Hyaline); Pathc Cast-AUWi Flag 0.14 (0-2.49)
--- NOTE | 2018-03-11 09:48 | ULT ---
RIGHT UPPER QUADRANT ULTRASOUND: Date: 03/11/18 PROVIDED CLINICAL HISTORY: Epigastric and left upper quadrant pain. FINDINGS: Comparison with 12/15/15. The visualized portions of the IVC and pancreas appear normal. The liver demonstrates no mass or intr ahepatic biliary ductal dilatation. Common duct is mildly prominent, measuring 7-8 mm. The gallbladde r is not visualized, compatible with the provided clinical history of prior cholecystectomy. The righ t kidney demonstrates no hydronephrosis or mass. IMPRESSION: Mild prominence of the common duct, presumably on the basis of post cholecystectomy status. Correlati on with laboratory values to exclude biliary obstructive change is recommended. POS: [facility]
--- NOTE | 2018-03-11 11:13 | CT ---
PRELIMINARY REPORT/[facility]/EMERGENCY AFTER HOURS PROCEDURE: EXAM: CT Abdomen and Pelvis With Intravenous Contrast EXAM DATE/TIME: 03/11/2018 12:45 AM CLINICAL HISTORY: 37 years old, female; severe abd pain all day. Chief complaints patient presents for evaluation of ab dominal pain, patient presents for evaluation of abdominal bloating. TECHNIQUE: Axial computed tomography images of the abdomen and pelvis with intravenous contrast. Coronal reforma tted images were created and reviewed. COMPARISON: No relevant prior studies available. FINDINGS: Lower thorax: Mild left basilar atelectasis vs infiltrates. Small hiatal hernia. ABDOMEN: Liver: No solid mass. Gallbladder and bile ducts: Gallbladder has been removed. Pancreas: No acute pathology. No ductal dilation. Spleen: No solid mass. No splenomegaly. Adrenals: No mass. Kidneys and ureters: No solid mass. No hydronephrosis. Stomach and bowel: No obstruction. No mucosal thickening. Appendix: The appendix is not visualized. PELVIS: Bladder: Unremarkable as visualized. Reproductive: 3.6 x 3.0 cm right adnexal cyst, likely ovarian. ABDOMEN and PELVIS: Intraperitoneal space: No free air. Bones/joints: No acute fracture. No dislocation. Soft tissues: Unremarkable. Vasculature: No abdominal aortic aneurysm. Lymph nodes: Nonspecific increased number of nonenlarged para-aortic nodes. IMPRESSION: Mild left basilar atelectasis vs infiltrates. Small hiatal hernia. 3.6 x 3.0 cm right adnexal cyst, likely ovarian. Nonspecific increased number of nonenlarged para-aortic nodes. Thank you for allowing us to participate in the care of your patient. Dictated and Authenticated by: Galileo Gonzales MD 03/11/2018 1:21 AM Central Time ([place] & [place]) FINAL REPORT CT ABDOMEN AND PELVIS WITH CONTRAST: Date: 03/11/18 HISTORY: Abdominal pain. COMPARISON: None. FINDINGS/IMPRESSION: I agree with a majority of the examination, although there is dilatation of the common bile duct talisha uring up to 1.0 cm. There is hyperenhancement of the cystic duct remnant, as well as the common bile duct, especially near the ampulla. Non radiopaque stone is of concern. ERCP/MRCP is recommended for further evaluation. I disagree with the preliminary report given by [facility]. POS: [facility]
--- NOTE | 2018-03-11 11:38 | HP ---
PRIMARY CARE PHYSICIAN: [facility] call admission. REASON FOR ADMISSION: Acute pancreatitis. HISTORY OF PRESENT ILLNESS: A 37-year-old female who has underlying history of asthma, who came to [facility] emergency room for evaluation of abdominal pain. Patient reports that for the last 2 days, she wa s experiencing epigastric and left upper quadrant as well as right upper quadrant abdominal pain, whi ch was getting worse with the food. She was feeling bloating. She was feeling nauseated and she als o had a vomiting intermittently. She was not able to eat because of abdominal pain. She did not not ice any fever or chills. She did not have any hematemesis, melena, hematochezia or diarrhea. She denies any abdominal distension. She does not have any UTI symptoms. She denies any headache or focal motor neurological symptoms. Patient reports that a few days ago, she had a viral infection w hich improved with over the counter medication, but she denies any NSAID abuse. In the emergency room, this patient had a routine blood test done and found with a significantly abno rmal LFT. She had CT of the abdomen and pelvis which showed nonspecific finding. Patient's routine blood tests showed significantly elevated lipase and the patient's clinical presentation was consiste nt with acute pancreatitis. In the emergency room, patient was given GI cocktail, IV fluid, Zofran, morphine, Bentyl, Toradol and subsequently she was admitted to medical floor. When I saw this patient in the morning, patient was still complaining of left upper quadrant pain whi ch was going to back which was about 5/10 in intensity. Pain medication was helping momentarily. In the emergency room, her blood pressure was low, but that was improved with IV fluid. Patient does n ot have any fever. This patient has previous history of cholecystectomy. PAST MEDICAL HISTORY: Mild intermittent asthma, history of cholelithiasis status post cholecystectom y, obesity. PAST SURGICAL HISTORY: Tubal ligation, laparoscopic cholecystectomy, appendicectomy, , tons illectomy. PAST PSYCHIATRIC HISTORY: Reviewed and negative. SOCIAL HISTORY: Patient smokes about 1 pack per day. She drinks alcohol very occasionally. She den ies any other illicit drug abuse. She is and lives at home with family. FAMILY HISTORY: Positive for asthma, no family history of coronary artery disease, stroke or cancer. ALLERGIES: No known drug allergy. REVIEW OF SYSTEMS: The following complete review of systems was negative, unless otherwise mentioned in the HPI or below: Constitutional: Weight loss or gain, ability to conduct usual activities. Sk in: Rash, itching. Eyes: Double vision, pain. ENT/Mouth: Nose bleeding, neck stiffness, pain, te nderness. Cardiovascular: Palpitations, dyspnea on exertion, orthopnea. Respiratory: Shortness of breath, wheezing, cough, hemoptysis, fever or night sweats. Gastrointestinal: Poor appetite, abdom inal pain, heartburn, nausea, vomiting, constipation, or diarrhea. Genitourinary: Urgency, frequenc y, dysuria, nocturia. Musculoskeletal: Pain, swelling. Neurologic/Psychiatric: Anxiety, depressio n. Allergy/Immunologic: Skin rash, bleeding tendency. Please see my HPI for pertinent positive and negative. All other review of systems reviewed and negative except as mentioned in the HPI. CURRENT HOME MEDICATIONS: Proventil HFA 2 puffs q.6 hourly p.r.n., albuterol nebulization p.r.n., Sy mbicort 2 puff inhalation b.i.d. EMERGENCY ROOM COURSE: Patient is given Toradol, IV fluid, GI cocktail, Bentyl, morphine and Zofran. PHYSICAL EXAMINATION: VITAL SIGNS: On arrival, blood pressure 72/45, pulse 86, respiratory rate 18, temperature 98.3, satu ration 96% on room air, weight 81.6 kilograms. Current blood pressure is 99/63. GENERAL: Patient is currently alert, awake, in no obvious acute distress. HEENT: Head: Normocephalic, atraumatic. Eyes: Pupils round, reactive to light. Extraocular muscl e intact. ENT: Oropharynx within normal limits. Moist mucous membrane, no oral lesion, no pharynge al erythema, no exudate. NECK: Supple, no JVD, no thyromegaly, no carotid bruit, no jugular venous distention. LUNGS: Clear to auscultation without any rhonchi or rales. CARDIAC: S1, S2 regular. No murmur, no gallop, no rub. ABDOMEN: Patient does have upper abdominal discomfort predominantly in epigastric as well as right u pper quadrant and left upper quadrant, no peritoneal sign, no Hudson sign, no suprapubic tenderness. No organomegaly, no distention. Bowel sounds present. BACK: Unremarkable, no CVA tenderness. EXTREMITIES: Upper extremity: Passive movement of all joints are normal. Lower extremity: No ebony ma. Good distal pulsation. SKIN: No skin rash. HEMATOLOGICAL: No lymphadenopathy. NEUROLOGIC: Nonfocal examination. SIGNIFICANT LABORATORY DATA: 1. CT of the abdomen and pelvis. Official report is pending, but reported as no pancreatic mass, no nspecific paraaortic lymph node, mild left atelectasis versus infiltration, small hiatal hernia, righ t ovarian cyst. 2. We did an abdominal ultrasound this morning and reported as mild prominence of common duct relate d with post cholecystectomy. 3. CBC: WBC 14.3, hemoglobin 14.4, platelets 258. BMP: Sodium 138, potassium 3.8, chloride 108, c arbon dioxide 19, anion gap 15, BUN 5, creatinine 0.79, glucose 113, calcium 9.4, phosphorus 2.8, mag nesium 2.0. LFT: Bilirubin 2.3, AST 602, ALT 654, alkaline phosphatase 248, albumin 4.2, lipase 659 8. Lipid profile: Triglycerides 76, cholesterol 137, LDL 79, HDL 43. Urinalysis, bilirubin moderat e, leukocyte esterase small, wbcs 11-20. test negative. Hepatitis profile negative. ASSESSMENT AND PLAN: 1. Acute pancreatitis. Patient's clinical presentation with upper abdominal pain radiating to back with elevated lipase and abnormal LFT consistent with acute pancreatitis. We checked lipid profile a nd that is normal, so hypertriglyceridemia excluded as the etiology of pancreatitis. This patient burns s a previous history of cholecystectomy and she has upper abdominal discomfort. We suspected choledo cholithiasis that might have passed contributed to her pancreatitis. At this point, LFT is improving . We will closely monitor on medical floor. We will keep her n.p.o. except ice chips and medication s. We will continue with IV fluid. We will consult replenishment merchandising associate for possible evaluation. Thi s patient may need ERCP versus MRCP. If LFT does not improve and abdominal pain does not improve, we will continue with Protonix 40 mg IV daily. Her pain will be controlled with morphine 4 mg every 2 hourly p.r.n. basis. Incentive spirometry advised. We will repeat labs again tomorrow. 2. Abnormal liver function tests, likely related with possibly choledocholithiasis versus pancreatit is, hepatitis profile checked and that is normal. Abdominal ultrasound is not showing any acute proc ess. We will monitor LFT. We are hoping that LFT should improve with conservative treatment. 3. Asthma, mild intermittent without any exacerbation. We will continue with DuoNeb q.6 hourly p.r. n., along with Dulera 2 puffs inhalation b.i.d. 4. Obesity with BMI 30. Dietary education given, weight loss education given. 5. Tobacco abuse disorder. Smoking cessation counseling given. 6. Deep venous thrombosis prophylaxis. Lovenox 40 mg subcu daily. 7. Gastrointestinal prophylaxis, Protonix 40 mg IV daily. 8. Code status: The patient is FULL CODE. The patient is making her decision by herself. Disposition plan based on clinical course. We are expecting patient's stay in hospital more than 2 m idnights. Plan of care discussed with the patient in detail.
[2018-03-11] MEDS ORDERED: Iopamidol-M 200 41% 10 ML VIAL FS ONE (16:51)
[2018-03-11] MEDS: HYDROcodone/Acetaminophen 5/325 mg Tablet PO PRN (17:53)
[2018-03-11] MEDS: Mometasone/Formoterol 120 PUFF INHALER INH SCH (19:43)
--- NOTE | 2018-03-11 20:33 | CON ---
DATE OF CONSULTATION: 03/11/2018 GASTROENTEROLOGY CONSULTATION NOTE CHIEF COMPLAINT: Abdominal pain. HISTORY OF PRESENT ILLNESS: Ms. Kelly is a 37-year-old woman who developed onset of epigastric achin g, severe pain 2 days ago. The pain progressed yesterday and radiated to her back and left upper dewey drant. She vomited 3 or 4 times yesterday and came in the emergency room for further care. She was found to have elevated liver tests and pancreatitis. Her pain is doing significantly better today wi th IV fluids. Prior to coming in, she tried Pepto-Bismol and Tums without help. The pain has been c ontinuous since Monday, but it is improving. PAST MEDICAL HISTORY: Asthma. PAST SURGICAL HISTORY: Cholecystectomy 2 years ago, tubal ligation, appendectomy, , tonsill ectomy. FAMILY HISTORY: Positive for lung cancer in her father, possibly colon cancer. SOCIAL HISTORY: She smokes a pack a day. Occasional alcohol, no drugs. She is . She has 7- year-old daughter. She works as a nurse's aide. ALLERGIES: No known drug allergies. MEDICATIONS: Prior to admission, she takes Aleve about once a day for chronic back pain. She takes Symbicort inhaler, albuterol inhaler and nebulizers as needed. REVIEW OF SYSTEMS: Negative x10 systems reviewed except as stated in history of present illness. PHYSICAL EXAMINATION: VITAL SIGNS: Temperature 98.4, pulse 55, blood pressure 86/55. GENERAL: She is in no acute distress, alert and oriented x3. HEENT: Eyes have no scleral icterus. Oropharynx is clear without lesions. NECK: No cervical or supraclavicular lymphadenopathy. LUNGS: Clear to auscultation bilaterally. HEART: Regular rate and rhythm without murmur. ABDOMEN: Tender in the epigastric region without guarding. Bowel sounds are present. EXTREMITIES: No lower extremity edema. NEUROLOGIC: Cranial nerves are grossly intact. LABORATORY DATA: Creatinine 0.67, bilirubin 2.0 down from 2.3 last night, AST 309 down from 600 last night, ALT 493 down from 654 last night, alkaline phosphatase 201 down from 248 last night. Labs im proved with hydration. Her lipase was 6598 on presentation. Acute hepatitis panel is nonreactive. Her white blood cell count is 14.3, hemoglobin 14.4, platelets 258 last night. IMPRESSION: Gallstone pancreatitis. She did have a CT scan that showed dilation of the common bile duct to 1 cm. She has had prior cholecystectomy. Her liver tests are significantly elevated consist ent with gallstone pancreatitis. I do think she has high risk for recurrent pancreatitis in the futu re and ERCP is indicated at this point. Her liver tests are obstructive and this is despite cholecys tectomy in 11/2015. Will plan for ERCP tomorrow. RECOMMENDATIONS: 1. ERCP tomorrow. 2. Continue IV fluids.
[2018-03-12] MEDS: Morphine 4 MG/ML VIAL SLOW IVP PRN ×2 (03:01→08:33)
[2018-03-12] MEDS: NS 0.9% w/ 20 MEQ KCL 1,000 ML/1,000 ML BAG IV SCH ×6 (03:07→20:24)
[2018-03-12 05:33] LABS: #Basophils 0.1 thou/uL (0.0-0.2); #Eosinphils 0.4 thou/uL (0.0-0.7); #Lymphocytes 4.3 thou/uL (1.20-3.40); #Monocytes 0.6 thou/uL (0.11-0.59); %Basophils 0.8 % (0.0-1.0); %Eosinophils 4.5 % (0.0-10.0); %Lymphocytes 45.8 % (21.0-51.0); %Neutrophils 42.8 % (42.0-75.0); Mean Corpuscular HGB CONC 33.1 g/dL (32.0-36.0); Mean Corpuscular Hemoglobin 32.6 pg (27.0-31.0); Mean Corpuscular Volume 98.5 fL (78.0-98.0); Mean Platelet Volume 9.7 fL (7.4-10.4); Platelet Count 191 thou/uL (130-400); RBC Distribution Width 12.9 % (11.5-14.5); Red Blood Cell (RBC) Count 3.67 mill/uL (4.20-5.40); White Blood Cell (WBC) Count 9.4 thou/uL (4.8-10.8)
[2018-03-12 05:50] LABS: ALT (SGPT) 333 U/L (8-55); AST (SGOT) 106 U/L (5-34); Albumin 3.4 g/dL (3.5-5.0); Alkaline Phosphatase 176 U/L (40-150); Anion Gap 10 mmol/L (10-20); BUN (Urea Nitrogen) 4 mg/dL (7.0-18.7); Bilirubin, Total 0.6 mg/dL (0.2-1.2); Calc. Creatinine Clearance 165 mL/min (70-130); Calcium 8.4 mg/dL (7.8-10.44); Carbon Dioxide 21 mmol/L (22-29); Chloride 113 mmol/L (98-107); Estimated GFR-MDRD Greater than 90; Globulin 1.9 g/dL (2.4-3.5); Glucose 84 mg/dL (70-105); Lipase 145 U/L (8-78); Potassium 4.3 mmol/L (3.5-5.1); Protein, Total 5.3 g/dL (6.0-8.3); Sodium 140 mmol/L (136-145)
[2018-03-12] MEDS: Mometasone/Formoterol 120 PUFF INHALER INH SCH ×2 (06:04→19:02)
[2018-03-12] MEDS: Pantoprazole 40 MG VIAL IVP SCH (08:33)
--- NOTE | 2018-03-12 10:10 | PDOC.PN ---
- Subjective Encounter Start Date: 03/12/18 Encounter Start Time: 09:10 Patient seen and examined. No new complaints. No overnight events - Objective Resuscitation Status: Resuscitation Status FULL:Full Resuscitation MAR Reviewed: Yes Vital Signs & Weight: Vital Signs (12 hours) Temp Pulse Resp BP Pulse Ox 03/12/18 07:54 98 F 49 L 16 103/58 L 95 03/12/18 04:55 52 L 16 95 03/12/18 04:00 98.5 F 48 L 16 92/54 L 95 03/12/18 00:00 98.4 F 53 L 16 109/72 92 L Weight Weight 186 lb 8.177 oz Result Diagrams: 03/12/18 04:32 03/12/18 04:32 Phys Exam - Physical Examination Constitutional: NAD HEENT: PERRLA, moist MMs, sclera anicteric Neck: no JVD, supple Respiratory: no wheezing, no rales, no rhonchi Cardiovascular: RRR, no significant murmur, no rub Gastrointestinal: soft, no distention, positive bowel sounds Musculoskeletal: no edema, pulses present Neurological: non-focal, normal sensation, moves all 4 limbs Lymphatic: no nodes Psychiatric: normal affect, A&O x 3 Skin: no rash, normal turgor Dx/Plan (1) Abnormal LFTs Code(s): R94.5 - ABNORMAL RESULTS OF LIVER FUNCTION STUDIES Status: Acute (2) Acute pancreatitis Code(s): K85.90 - ACUTE PANCREATITIS WITHOUT NECROSIS OR INFECTION, UNSP Status: Acute (3) Chronic obstructive airway disease with asthma Status: Chronic (4) Obesity (BMI 30.0-34.9) Code(s): E66.9 - OBESITY, UNSPECIFIED Status: Chronic (5) Tobacco abuse Code(s): Z72.0 - TOBACCO USE Status: Chronic - Plan cont current plan of care * medication reviewed as below * symptomatic treatment * today ERCP * advance diet as tolerated after procedure * repeat labs tomorrow. Review of Systems - Review of Systems ENT: negative: Ear Pain, Ear Discharge, Nose Pain, Nose Discharge, Nose Congestion, Mouth Pain, Mouth Swelling, Throat Pain, Throat Swelling, Other Respiratory: negative: Cough, Dry, Shortness of Breath, Hemoptysis, SOB with Excertion, Pleuritic Pain, Sputum, Wheezing Cardiovascular: negative: chest pain, palpitations, orthopnea, paroxysmal nocturnal dyspnea, edema, light headedness, other Gastrointestinal: Nausea, Abdominal Pain. negative: Vomiting, Diarrhea, Constipation, Melena, Hematochezia, Other Genitourinary: negative: Dysuria, Frequency, Incontinence, Hematuria, Retention , Other Musculoskeletal: negative: Neck Pain, Shoulder Pain, Arm Pain, Back Pain, Hand Pain, Leg Pain, Foot Pain, Other Skin: negative: Rash, Lesions, Jose, Bruising, Other - Medications/Allergies Allergies/Adverse Reactions: Allergies Allergy/AdvReac Type Severity Reaction Status Date / Time No Known Allergies Allergy Verified 03/11/18 04:47 Medications: Current Medications Acetaminophen (Tylenol) 650 mg PO Q4H PRN PRN Reason: Headache/Fever/Mild Pain (1-3) Hydrocodone Bitart/Acetaminophen ([place] 5/325) 1 tab PO Q4H PRN PRN Reason: Moderate Pain (4-6) Last Admin: 03/11/18 17:53 Dose: 1 tab Albuterol/Ipratropium (Duoneb) 3 ml NEB [id number] [facility] Last Admin: 03/12/18 06:03 Dose: Not Given Artificial Tears (Tears Renewed 15ml Bottle) 2 drop EA EYE PRN PRN PRN Reason: Dry Eyes Bisacodyl (Dulcolax) 10 mg PO DAILYPRN PRN PRN Reason: Constipation Bisacodyl (Dulcolax) 10 mg IA DAILYPRN PRN PRN Reason: Constipation Enoxaparin Sodium (Lovenox) 40 mg SC 0900 [facility] Last Admin: 03/11/18 08:22 Dose: 40 mg Guaifenesin (Robitussin Sf) 200 mg PO Q4H PRN PRN Reason: Cough Hydralazine HCl (Apresoline) 10 mg SLOW IVP Q4H PRN PRN Reason: SBP Greater Than 170 Potassium Chloride/Sodium Chloride (Ns 0.9% W/ 20 Meq Kcl) 1,000 ml in 1,000 mls @ 200 mls/hr IV .Q5H [facility] Last Admin: 03/12/18 08:33 Dose: Not Given Loperamide HCl (Imodium) 2 mg PO PRN PRN PRN Reason: Diarrhea/Loose Stools Mineral Oil/White Petrolatum (Eucerin Cream) 0 gm TOP BIDPRN PRN PRN Reason: Dry Skin Mometasone Furoate/Formoterol Fumar (Dulera 200 Mcg/5 Mcg Inhaler) 2 puff INH BID-RT [facility] Last Admin: 03/12/18 06:04 Dose: Not Given Morphine Sulfate (Morphine) 4 mg SLOW IVP Q2H PRN PRN Reason: Pain Last Admin: 03/12/18 08:33 Dose: 4 mg Ondansetron HCl (Zofran Odt) 4 mg PO Q6H PRN PRN Reason: Nausea/Vomiting Ondansetron HCl (Zofran) 4 mg IVP Q6H PRN PRN Reason: Nausea/Vomiting Pantoprazole Sodium (Protonix) 40 mg IVP DAILY [facility] Last Admin: 03/12/18 08:33 Dose: 40 mg Senna/Docusate Sodium (Senokot S) 2 tab PO BID PRN PRN Reason: Constipation Sodium Chloride ([place] Nasal [place] 0.65%) 0 ml EA NARE QIDPRN PRN PRN Reason: Nasal Congestion Throat Lozenges (Cepastat Lozenges) 1 domingo PO Q2H PRN PRN Reason: Sore Throat Zolpidem Tartrate (Ambien) 5 mg PO HSPRN PRN PRN Reason: Insomnia
[2018-03-12] MEDS ORDERED: Morphine 4 MG/ML VIAL ONE (11:29)
[2018-03-12] MEDS ORDERED: Fentanyl 100 MCG/2 ML VIAL ONE (11:53)
[2018-03-12] MEDS ORDERED: Indomethacin 50 MG SUPP ONE (11:57)
[2018-03-12] MEDS ORDERED: Iothalamate Meglumine 60% 50 ML VIAL FS ONE (11:57)
[2018-03-12] MEDS ORDERED: cefTRIAXone\\ROCEPHIN 1 GM VIAL ONE (12:09)
[2018-03-12] MEDS ORDERED: Sodium Chloride 0.9% 100 ML ONE (12:10)
[2018-03-12] MEDS ORDERED: Albuterol Sulfate 1.25 MG/3 ML NEB ONE (13:11)
[2018-03-12] MEDS ORDERED: Sodium Chloride For Inhalation 0.9% 3 ML NEB ONE ×2 (13:11→13:29)
[2018-03-12] MEDS ORDERED: Ondansetron HCl/PF 4 MG/2 ML Vial IVP PRN ×2 (13:14→17:27)
[2018-03-12] MEDS ORDERED: Promethazine HCl 25 MG/ML VIAL SLOW IVP PRN (13:14)
[2018-03-12] MEDS ORDERED: Promethazine HCl 25 MG/ML VIAL IM PRN (13:14)
[2018-03-12] MEDS ORDERED: Albuterol Sulfate 2.5 mg/3 ml Neb NEB SCH ×2 (13:15→17:30)
--- NOTE | 2018-03-12 13:50 | OP ---
DATE OF PROCEDURE: 03/12/2018 PROCEDURE: Endoscopic retrograde cholangiopancreatography with sphincterotomy and balloon sweep of t he bile duct. PREOPERATIVE DIAGNOSIS: Gallstone pancreatitis. Her pain is improved and her bilirubin is trending down. However, her transaminases and alkaline izabel sphatase remain elevated with a dilated bile duct. She is potentially high risk for recurrent gallst one pancreatitis if she has further stones in the bile duct. OPERATIVE NOTE: Informed consent was obtained from the patient. She was sedated with general anesth esia and placed in the prone position. The side-viewing endoscope was advanced easily to the second portion of the duodenum. The ampulla was identified and appeared red consistent potentially with a s tone having passed through. The common bile duct was selectively cannulated easily on first attempt. Cholangiogram was performed which showed dilation of the common bile duct to 11 mm. The intra and extrahepatic ducts were normal. A complete sphincterotomy was performed. There was good flow of nawaf e with the sphincterotomy. A 12 mm balloon was then used to sweep the duct which passed easily throu gh the sphincterotomy without resistance. Occlusion cholangiogram confirmed the duct to be clear. N o stone was present. The air and fluid was suctioned from her stomach and the procedure was complete d. IMPRESSION: 1. Common bile duct dilated to 11 mm. Otherwise, normal cholangiogram. 2. Complete sphincterotomy performed. 3. Balloon sweep and occlusion cholangiogram confirms the duct to be clear. RECOMMENDATIONS: 1. Advance diet. 2. It should be okay to discharge home once she is tolerating a low-fat diet. 3. Follow up in the GI Clinic in 2-4 weeks.
[2018-03-12] MEDS: HYDROcodone/Acetaminophen 5/325 mg Tablet PO PRN ×2 (14:09→18:15)
[2018-03-12] MEDS ORDERED: Ondansetron PF 4 MG/2 ML Vial ONE (14:22)
[2018-03-12] MEDS ORDERED: Lidocaine 1% PF 5 ML VIAL ONE (14:22)
[2018-03-12] MEDS ORDERED: PROPOFOL 200 MG/20 ML VIAL ONE (14:22)
[2018-03-12] MEDS ORDERED: Glycopyrrolate 0.2 MG/ML 5 ML SYRINGE ONE (14:22)
[2018-03-12] MEDS ORDERED: Non-Formulary Medication 1 EACH PO PRN (17:27)
[2018-03-12] MEDS ORDERED: Promethazine HCl 25 MG/ML VIAL IM/IV PRN (17:27)
[2018-03-13] MEDS: HYDROcodone/Acetaminophen 5/325 mg Tablet PO PRN ×2 (00:57→08:10)
[2018-03-13] MEDS: NS 0.9% w/ 20 MEQ KCL 1,000 ML/1,000 ML BAG IV SCH ×3 (00:59→10:41)
[2018-03-13 04:43] LABS: #Basophils 0.1 thou/uL (0.0-0.2); #Eosinphils 0.5 thou/uL (0.0-0.7); #Lymphocytes 3.6 thou/uL (1.20-3.40); #Monocytes 0.5 thou/uL (0.11-0.59); #Neutrophils 5.8 thou/uL (1.40-6.50); %Basophils 0.8 % (0.0-1.0); %Eosinophils 4.4 % (0.0-10.0); %Lymphocytes 34.5 % (21.0-51.0); %Monocytes 5.1 % (0.0-10.0); %Neutrophils 55.3 % (42.0-75.0); Hemoglobin 11.9 g/dL (12.0-16.0); Mean Corpuscular HGB CONC 31.6 g/dL (32.0-36.0); Mean Corpuscular Hemoglobin 30.8 pg (27.0-31.0); Mean Corpuscular Volume 97.5 fL (78.0-98.0); Mean Platelet Volume 9.3 fL (7.4-10.4); Platelet Count 207 thou/uL (130-400); RBC Distribution Width 12.8 % (11.5-14.5); Red Blood Cell (RBC) Count 3.85 mill/uL (4.20-5.40); White Blood Cell (WBC) Count 10.5 thou/uL (4.8-10.8)
[2018-03-13 05:07] LABS: ALT (SGPT) 219 U/L (8-55); AST (SGOT) 44 U/L (5-34); Albumin 3.2 g/dL (3.5-5.0); Alkaline Phosphatase 148 U/L (40-150); Anion Gap 8 mmol/L (10-20); BUN (Urea Nitrogen) 4 mg/dL (7.0-18.7); Bilirubin, Total 0.4 mg/dL (0.2-1.2); Calc. Creatinine Clearance 146 mL/min (70-130); Carbon Dioxide 22 mmol/L (22-29); Chloride 112 mmol/L (98-107); Estimated GFR-MDRD Greater than 90; Glucose 88 mg/dL (70-105); Lipase 90 U/L (8-78); Potassium 4.2 mmol/L (3.5-5.1); Protein, Total 5.2 g/dL (6.0-8.3); Sodium 138 mmol/L (136-145)
[2018-03-13] MEDS: Mometasone/Formoterol 120 PUFF INHALER INH SCH (07:19)
[2018-03-13] MEDS: Pantoprazole 40 MG VIAL IVP SCH (08:11)
[2018-03-13] MEDS: Enoxaparin Sodium 40 MG/0.4 ML SYRINGE SC SCH (08:11)
[2018-03-13 08:26] VITALS: BP 127/80; TEMP 98.4
--- NOTE | 2018-03-13 09:59 | PDOC.PN ---
- Subjective Encounter Start Date: 03/13/18 Encounter Start Time: 08:30 Patient seen and examined. No new complaints. No overnight events - Objective Resuscitation Status: Resuscitation Status FULL:Full Resuscitation MAR Reviewed: Yes Vital Signs & Weight: Vital Signs (12 hours) Temp Pulse Resp BP Pulse Ox 03/13/18 08:00 98.4 F 59 L 16 127/80 97 03/13/18 05:19 98.3 F 76 16 103/70 91 L 03/13/18 00:00 98.5 F 65 16 96/63 95 03/12/18 23:45 92 L Weight Weight 186 lb 8.177 oz Result Diagrams: 03/13/18 04:06 03/13/18 04:06 Phys Exam - Physical Examination Constitutional: NAD HEENT: PERRLA, moist MMs, sclera anicteric Neck: no JVD, supple Respiratory: no wheezing, no rales, no rhonchi Cardiovascular: RRR, no significant murmur, no rub Gastrointestinal: soft, non-tender, no distention, positive bowel sounds Musculoskeletal: no edema, pulses present Neurological: non-focal, normal sensation, moves all 4 limbs Psychiatric: normal affect, A&O x 3 Skin: no rash, normal turgor Dx/Plan (1) Abnormal LFTs Code(s): R94.5 - ABNORMAL RESULTS OF LIVER FUNCTION STUDIES Status: Acute (2) Acute pancreatitis Code(s): K85.90 - ACUTE PANCREATITIS WITHOUT NECROSIS OR INFECTION, UNSP Status: Acute (3) Chronic obstructive airway disease with asthma Status: Chronic (4) Obesity (BMI 30.0-34.9) Code(s): E66.9 - OBESITY, UNSPECIFIED Status: Chronic (5) Tobacco abuse Code(s): Z72.0 - TOBACCO USE Status: Chronic - Plan cont current plan of care * medication reviewed as below * symptomatic treatment * see discharge summery. Review of Systems - Review of Systems ENT: negative: Ear Pain, Ear Discharge, Nose Pain, Nose Discharge, Nose Congestion, Mouth Pain, Mouth Swelling, Throat Pain, Throat Swelling, Other Respiratory: negative: Cough, Dry, Shortness of Breath, Hemoptysis, SOB with Excertion, Pleuritic Pain, Sputum, Wheezing Cardiovascular: negative: chest pain, palpitations, orthopnea, paroxysmal nocturnal dyspnea, edema, light headedness, other Gastrointestinal: negative: Nausea, Vomiting, Abdominal Pain, Diarrhea, Constipation, Melena, Hematochezia, Other Genitourinary: negative: Dysuria, Frequency, Incontinence, Hematuria, Retention , Other Musculoskeletal: negative: Neck Pain, Shoulder Pain, Arm Pain, Back Pain, Hand Pain, Leg Pain, Foot Pain, Other - Medications/Allergies Allergies/Adverse Reactions: Allergies Allergy/AdvReac Type Severity Reaction Status Date / Time No Known Allergies Allergy Verified 03/11/18 04:47 Medications: Current Medications Acetaminophen (Tylenol) 650 mg PO Q4H PRN PRN Reason: Headache/Fever/Mild Pain (1-3) Hydrocodone Bitart/Acetaminophen ([place] 5/325) 1 tab PO Q4H PRN PRN Reason: Moderate Pain (4-6) Last Admin: 03/13/18 08:10 Dose: 1 tab Albuterol/Ipratropium (Duoneb) 3 ml NEB [id number] [facility] Last Admin: 03/13/18 07:19 Dose: Not Given Artificial Tears (Tears Renewed 15ml Bottle) 2 drop EA EYE PRN PRN PRN Reason: Dry Eyes Bisacodyl (Dulcolax) 10 mg PO DAILYPRN PRN PRN Reason: Constipation Bisacodyl (Dulcolax) 10 mg MT DAILYPRN PRN PRN Reason: Constipation Enoxaparin Sodium (Lovenox) 40 mg SC 0900 [facility] Last Admin: 03/13/18 08:11 Dose: Not Given Guaifenesin (Robitussin Sf) 200 mg PO Q4H PRN PRN Reason: Cough Hydralazine HCl (Apresoline) 10 mg SLOW IVP Q4H PRN PRN Reason: SBP Greater Than 170 Potassium Chloride/Sodium Chloride (Ns 0.9% W/ 20 Meq Kcl) 1,000 ml in 1,000 mls @ 200 mls/hr IV .Q5H [facility] Last Admin: 03/13/18 05:19 Dose: Not Given Loperamide HCl (Imodium) 2 mg PO PRN PRN PRN Reason: Diarrhea/Loose Stools Mineral Oil/White Petrolatum (Eucerin Cream) 0 gm TOP BIDPRN PRN PRN Reason: Dry Skin Mometasone Furoate/Formoterol Fumar (Dulera 200 Mcg/5 Mcg Inhaler) 2 puff INH BID-RT [facility] Last Admin: 03/13/18 07:19 Dose: Not Given Morphine Sulfate (Morphine) 4 mg SLOW IVP Q2H PRN PRN Reason: Pain Last Admin: 03/12/18 08:33 Dose: 4 mg Ondansetron HCl (Zofran Odt) 4 mg PO Q6H PRN PRN Reason: Nausea/Vomiting Ondansetron HCl (Zofran) 4 mg IVP Q6H PRN PRN Reason: Nausea/Vomiting Pantoprazole Sodium (Protonix) 40 mg IVP DAILY [facility] Last Admin: 03/13/18 08:11 Dose: 40 mg Senna/Docusate Sodium (Senokot S) 2 tab PO BID PRN PRN Reason: Constipation Sodium Chloride ([place] Nasal [place] 0.65%) 0 ml EA NARE QIDPRN PRN PRN Reason: Nasal Congestion Throat Lozenges (Cepastat Lozenges) 1 [place] PO Q2H PRN PRN Reason: Sore Throat Zolpidem Tartrate (Ambien) 5 mg PO HSPRN PRN PRN Reason: Insomnia
--- NOTE | 2018-03-13 10:50 | DIS ---
DATE OF ADMISSION: 03/11/2018 DATE OF DISCHARGE: 03/13/2018 PRIMARY CARE PHYSICIAN: [facility] call admission. DISCHARGE DISPOSITION: Home. PRIMARY DISCHARGE DIAGNOSES: 1. Acute pancreatitis, improved. 2. Abnormal liver function tests due to problem #1. SECONDARY DISCHARGE DIAGNOSES: Chronic obstructive pulmonary disease/asthma, obesity with BMI 30, to bacco abuse disorder. PRIMARY PROCEDURE/OPERATION: ERCP was performed by Dr. Lewis and sphincterotomy was performed. RADIOLOGICAL INVESTIGATION: Abdomen and pelvis CT scan showed common bile duct prominence. Abdomina l ultrasound showed common bile duct prominence. SIGNIFICANT LABORATORY DATA: WBC 10.5, hemoglobin 11.9, platelets 207. Sodium 138, potassium 4.2, B UN 4, creatinine 0.71, calcium 8.0, AST 44, ALT 219, alkaline phosphatase is 148, albumin 3.2, lipase 90. Hepatitis profile negative. DISCHARGE MEDICATIONS: Protonix 40 mg p.o. daily, Proventil 2 puffs q.6 hourly p.r.n., albuterol sul fate nebulization q.6 hourly p.r.n., Symbicort 2 puff inhalation b.i.d. CONTRAINDICATIONS: None. CODE STATUS: FULL CODE. INPATIENT CONSULTANTS: Dr. Maciej Lewis was consulted while in hospital. TEST RESULTS PENDING ON DISCHARGE: None. ALLERGIES: No known drug allergy. DISCHARGE PLAN: Post hospital, the patient will follow up with Dr. Lewis as instructed. HOSPITAL COURSE: This is a 37-year-old female, who was admitted by me. Please see my HPI for furthe r details. Patient came to hospital with epigastric abdominal pain. Her presentation was consistent with acute pancreatitis. On admission, she had abnormal LFTs and elevated lipase. CT of the abdome n and pelvis did not show any specific abnormality on pancreas, but clinically patient was having acu te pancreatitis. Patient already had cholecystectomy in the past and her LFT was cholestatic pattern and that is why we suspected choledocholithiasis. We consulted hand cigar maker and they recommen ded to do ERCP. We also did abdominal ultrasound, which showed prominence of common bile duct. ERCP showed CBD 11 mm and sphincterotomy was performed. Patient's LFT was significantly improving by the time of discharge and patient clinically improved as well. We provided patient education about diet while in hospital. This patient is eager to go home today. We have advanced diet to full liquid di et and patient is instructed to avoid greasy food. She will make appointment with Dr. Lewis after discharge. She will continue all above-mentioned medi cation. The patient is seen and examined at bedside today. Please see my progress note from today for furthe r detail.
== END 2018-03-13 10:51 | disposition home or self-care (01) | DRG 440 ==
LOC: ERS 22:56 → T4-B 03-11 03:12
PROVIDERS: ADMIT Internal Medicine; ATTEND Internal Medicine
PROC: 0F798ZZ Dilation of Common Bile Duct, Via Natural or Artificial Opening Endoscopic (ICD-10-PCS; principal; 2018-03-12)
DX: K85.10 Biliary acute pancreatitis without necrosis or infection (principal); J45.20 Mild intermittent asthma, uncomplicated; E66.9 Obesity, unspecified; F17.210 Nicotine dependence, cigarettes, uncomplicated; Z68.30 Body mass index [BMI] 30.0-30.9, adult; Z90.49 Acquired absence of other specified parts of digestive tract
CPT/HCPCS: 36415; 74177; 76000; 76705; 80053; 80061; 80074; 81003; 81025; 83690; 83735; 84100; 85025; 86140; 94640; 96361; 96372; 96374; 96375; C9113; J0696; J1650; J1885; J2001; J2270; J2405; J2704; J3010; J7050; J7620; Q0162; Q9961

== ENCOUNTER 2019-03-20 09:26 | Emergency (ER) | payer BC ==
[2019-03-20] MEDS ORDERED: Albuterol Sulfate 2.5 mg/3 ml Neb ONE (09:40)
[2019-03-20] MEDS ORDERED: predniSONE 20 MG TAB ONE (10:07)
== END 2019-03-20 11:14 | disposition home or self-care (01) ==
LOC: ERS 09:26
DX: J45.901 Unspecified asthma with (acute) exacerbation (principal)
CPT/HCPCS: 94640; 94644; J7512; J7611; J7620

== ENCOUNTER 2019-06-03 04:48 | Observation (INO) | payer SELFPAY ==
[2019-06-03 05:10] LABS: Hemoglobin 13.6 g/dL (12.0-16.0); Mean Corpuscular HGB CONC 32.4 g/dL (32.0-36.0); Mean Corpuscular Hemoglobin 31.2 pg (27.0-31.0); Mean Corpuscular Volume 96.3 fL (78.0-98.0); Mean Platelet Volume 8.6 fL (7.4-10.4); Platelet Count 244 thou/uL (130-400); RBC Distribution Width 13.2 % (11.5-14.5); Red Blood Cell (RBC) Count 4.36 mill/uL (4.20-5.40); White Blood Cell (WBC) Count 22.3 thou/uL (4.8-10.8)
[2019-06-03 05:12] LABS: BHCG - Serum Negative (NEGATIVE); Pregs Control Background? CLEAR/WHITE (CLR/WHITE); Pregs Control Bar Appear? YES (CONTROL BAR)
[2019-06-03 05:28] LABS: ALT (SGPT) 12 U/L (8-55); AST (SGOT) 14 U/L (5-34); Albumin 4.2 g/dL (3.5-5.0); Alkaline Phosphatase 67 U/L (40-110); Anion Gap 12 mmol/L (10-20); BUN (Urea Nitrogen) 8 mg/dL (7.0-18.7); Bilirubin, Total 0.4 mg/dL (0.2-1.2); Calc. Creatinine Clearance 0 mL/min (70-130); Calcium 8.6 mg/dL (7.8-10.44); Carbon Dioxide 22 mmol/L (22-29); Chloride 109 mmol/L (98-107); Estimated GFR-MDRD 73; Globulin 2.5 g/dL (2.4-3.5); Glucose 116 mg/dL (70-105); Potassium 3.6 mmol/L (3.5-5.1); Protein, Total 6.7 g/dL (6.0-8.3); Sodium 139 mmol/L (136-145)
[2019-06-03 05:50] LABS: Eosinophils 3 % (0-10); Lymphocytes 34 % (21-51); MDiff Complete? YES; Monocytes 4 % (0-10); Neutrophil 59 % (42-75)
[2019-06-03] MEDS ORDERED: Albuterol Sulfate 2.5 mg/3 ml Neb ONE (06:08)
[2019-06-03] MEDS ORDERED: Senokot S 8.6-50 MG TAB PO PRN (07:06)
[2019-06-03] MEDS ORDERED: Ondansetron PF 4 MG/2 ML Vial IVP PRN (07:06)
[2019-06-03] MEDS ORDERED: Acetaminophen 325 MG TAB PO PRN (07:06)
[2019-06-03] MEDS ORDERED: Calcium Carbonate 500 MG ChewTAB PO PRN (07:06)
[2019-06-03] MEDS ORDERED: Ondansetron ODT 4 MG TAB PO PRN (07:06)
[2019-06-03] MEDS ORDERED: Cepastat Lozenges 1 LOZ PO PRN (07:08)
[2019-06-03] MEDS ORDERED: Diabetic Tussin 200 MG/10 ML UDCUP PO PRN (07:08)
[2019-06-03] MEDS ORDERED: hydrALAZINE 20 MG/ML VIAL SLOW IVP PRN (07:08)
[2019-06-03] MEDS ORDERED: Magnesium 2 GM/50 ML 2 GM in Premix Bag 1 BAG IVPB SCH (07:15)
--- NOTE | 2019-06-03 07:18 | RAD ---
RADIOGRAPH CHEST 1 VIEW: DATE: 06/03/2019 HISTORY: 38-year-old female with asthma presents with dyspnea. FINDINGS: There are no airspace densities, pulmonary edema, pneumothorax, or cardiomegaly. The lateral costophr enic angles are sharp. Chronic interstitial changes at bilateral lung bases. No interval change since 04/30/2019. IMPRESSION: No acute cardiopulmonary findings.
[2019-06-03] MEDS ORDERED: Azithromycin 250 MG TAB PO SCH (07:45)
[2019-06-03 08:29] VITALS: BMI 28.9
[2019-06-03] MEDS: guaiFENesin ER 600 MG TAB PO SCH ×2 (09:11→20:32)
[2019-06-03] MEDS: methylPREDNISolone Sod Succ 40 MG VIAL IVP SCH ×3 (09:11→20:32)
[2019-06-03] MEDS: Famotidine 20 MG TAB PO SCH ×2 (09:11→20:32)
--- NOTE | 2019-06-03 12:33 | HP ---
PRIMARY CARE PHYSICIAN: [facility] [place] Call admission. REASON FOR ADMISSION: Asthma exacerbation. HISTORY OF PRESENT ILLNESS: A 38-year-old female who has underlying history of asthma, who presented to emergency room with complaint of increasing shortness of breath. Two weeks ago, the patient was having flu-like illness. The patient also had similar increasing shortness of breath about 2 weeks ago and that is why she was using her home inhaler and at that time, the patient improved. This time the patient was having severe flare up and she has to call paramedics and when paramedics checked her oxygen at that time, she was hypoxic and saturation was 90% only. The patient was in tripod position and she appeared in severe respiratory distress and that is why the patient was brought to ER and the patient was treated with respiratory therapy. Subsequently, the patient's condition was stabilized and admitted to telemetry floor. The patient reports that one time she required BiPAP, but never been intubated in the past. She requires frequent emergency room visit but hospitalized for couple of times for her asthma. The patient continued to smoke about half pack per day. She denies any chest pain or pleurisy. She denies any lower extremity edema. She denies any orthopnea or PND. She denies any fever, chills, hemoptysis. REVIEW OF SYSTEMS: CONSTITUTIONAL: Negative for weight loss or gain, ability to conduct usual activities. SKIN: Negative for rash, itching. EYES: Negative for double vision, pain. ENT/MOUTH: Negative for nose bleeding, neck stiffness, pain, tenderness. CARDIOVASCULAR: Negative for palpitations, dyspnea on exertion, orthopnea. RESPIRATORY: Negative for shortness of breath, wheezing, cough, hemoptysis, fever or night sweats. GASTROINTESTINAL: Negative for poor appetite, abdominal pain, heartburn, nausea, vomiting, constipation, or diarrhea. GENITOURINARY: Negative for urgency, frequency, dysuria, nocturia. MUSCULOSKELETAL: Negative for pain, swelling. NEUROLOGIC/PSYCHIATRIC: Negative for anxiety, depression. ALLERGY/IMMUNOLOGIC: Negative for skin rash, bleeding tendency. Please see my HPI for pertinent positives and negatives. All other review of systems reviewed and negative except as mentioned in HPI. PAST MEDICAL HISTORY: Asthma, tobacco abuse disorder. PAST SURGICAL HISTORY: ERCP, appendicectomy, cholecystectomy, , tonsillectomy, tubal ligation. PAST PSYCHIATRIC HISTORY: Reviewed and negative. SOCIAL HISTORY: The patient is smoking about half pack per day. She drinks alcohol socially. She denies any other illicit drug abuse. FAMILY HISTORY: No strong family history of premature coronary artery disease, stroke, or cancer. ALLERGIES: NO KNOWN DRUG ALLERGIES. CURRENT HOME MEDICATIONS: 1. Albuterol inhaler as needed basis. 2. Symbicort two puffs inhalation b.i.d. EMERGENCY ROOM COURSE: The patient was treated with respiratory therapy. PHYSICAL EXAMINATION: VITAL SIGNS: On arrival, blood pressure 118/89, pulse 136, respiratory rate 30, temperature 98.8, saturation 95% on room air. Weight 72 kg. GENERAL: The patient is currently alert, awake, no acute distress. HEENT: Head; normocephalic, atraumatic. Eyes; pupils round, reactive to light. Extraocular muscle intact. ENT, oropharynx within normal limits. Moist mucous membranes. No oral lesion. No pharyngeal erythema. No exudate. NECK: Supple. No JVD. No meningeal signs of irritation. LUNGS: Bilateral wheezing heard. No rales. No accessory muscles of respiration in use. The patient is able to talk in full sentence. CARDIAC: S1 and S2 regular. No murmur. No gallop. No rub. Tachycardia. ABDOMEN: Soft, bowel sounds present, nontender, nondistended. No organomegaly. No mass. EXTREMITIES: No edema. Good distal pulsation. SKIN: No skin rash. HEMATOLOGICAL: No lymphadenopathy. NEUROLOGIC: Nonfocal examination. PSYCHIATRIC: Normal affect. SIGNIFICANT LABORATORY DATA: Chest x-ray based on my review, no acute cardiopulmonary process. CBC; WBC 22.3, hemoglobin 13.6, platelet 244. BMP; sodium 139, potassium 3.6, chloride 109, carbon dioxide 22, BUN 8, creatinine 0.87, glucose 116, calcium 8.6. LFT; AST 14, ALT 12, alkaline phosphatase 67, albumin 4.2. test negative. ASSESSMENT AND PLAN: 1. Acute asthmatic bronchitis with asthma exacerbation, moderate persistent type. The patient will require admission for her respiratory distress. We will keep her in observation status. Continue with DuoNeb therapy every 4 hourly along with Pulmicort nebulization twice daily and Solu-Medrol 40 mg IV q.6 hourly. We will also empirically give her Z-Casey while in hospital and continue Mucinex 600 mg twice daily. We will reassess her in next 24 hours. 2. Tobacco abuse disorder. Smoking cessation counseling will be given. Healthy lifestyle measure discussed with the patient. 3. Deep venous thrombosis prophylaxis, SCD boots. GI prophylaxis, Pepcid 20 mg p.o. b.i.d. CODE STATUS: The patient is full code. DISPOSITION PLAN: Based on clinical course, expecting discharge in 24 to 48 hours. Plan of care discussed with the patient in detail. Job ID: [id number]
[2019-06-03] MEDS: Budesonide 0.5 MG/2 ML NEB INH SCH (20:38)
[2019-06-04] MEDS: methylPREDNISolone Sod Succ 40 MG VIAL IVP SCH ×2 (02:49→08:55)
[2019-06-04 06:08] LABS: Hemoglobin 13.2 g/dL (12.0-16.0); Mean Corpuscular HGB CONC 32.7 g/dL (32.0-36.0); Mean Corpuscular Hemoglobin 31.4 pg (27.0-31.0); Mean Platelet Volume 9.6 fL (7.4-10.4); Platelet Count 223 thou/uL (130-400); RBC Distribution Width 13.4 % (11.5-14.5); Red Blood Cell (RBC) Count 4.19 mill/uL (4.20-5.40); White Blood Cell (WBC) Count 27.3 thou/uL (4.8-10.8)
[2019-06-04 06:25] LABS: Band 6 % (5-11); Lymphocytes 4 % (21-51); MDiff Complete? YES; Monocytes 5 % (0-10); Neutrophil 85 % (42-75)
[2019-06-04 06:30] LABS: Anion Gap 14 mmol/L (10-20); BUN (Urea Nitrogen) 9 mg/dL (7.0-18.7); Calc. Creatinine Clearance 137 mL/min (70-130); Calcium 9.1 mg/dL (7.8-10.44); Carbon Dioxide 16 mmol/L (22-29); Chloride 113 mmol/L (98-107); Estimated GFR-MDRD Greater than 90; Glucose 135 mg/dL (70-105); Potassium 4.5 mmol/L (3.5-5.1); Sodium 138 mmol/L (136-145)
[2019-06-04] MEDS: Budesonide 0.5 MG/2 ML NEB INH SCH (06:57)
[2019-06-04 07:36] VITALS: BP 105/62; TEMP 98.9
[2019-06-04] MEDS: guaiFENesin ER 600 MG TAB PO SCH (08:55)
[2019-06-04] MEDS: Famotidine 20 MG TAB PO SCH (08:55)
[2019-06-04] MEDS ORDERED: Azithromycin 250 MG TAB PO SCH (09:00)
--- NOTE | 2019-06-04 11:31 | DIS ---
DATE OF ADMISSION: 06/03/2019 DATE OF DISCHARGE: 06/04/2019 PRIMARY CARE PHYSICIAN: [facility] Call admission. DISCHARGE DISPOSITION: Home. PRIMARY DISCHARGE DIAGNOSIS: Acute asthma exacerbation, moderate, persistent. SECONDARY DISCHARGE DIAGNOSIS: Tobacco abuse disorder. PRIMARY PROCEDURE/OPERATION: None. RADIOLOGICAL INVESTIGATION: Chest x-ray was negative for any acute process. SIGNIFICANT LABORATORY DATA: WBC 27.3, hemoglobin 13.2, platelet 223. Sodium 138, potassium 4.5, BUN 9, creatinine 0.72, calcium 9.1. LFT normal. test negative. DISCHARGE MEDICATIONS: 1. Albuterol sulfate nebulization q.4 hourly p.r.n. 2. Proventil HFA 2 puffs q.4 hourly p.r.n. 3. Mucinex 600 mg twice daily for 7 days. 4. Azithromycin 250 mg p.o. daily for 5 days. 5. Tessalon 100 mg t.i.d. p.r.n. 6. Symbicort 2 puffs inhalation b.i.d. 7. Singulair 10 mg daily. 8. Prednisone 20 mg p.o. b.i.d. for 3 days, then 20 mg daily for 3 days, and then 10 mg p.o. daily for 3 days. CONTRAINDICATION: None. CODE STATUS: Full code. INPATIENT GLAZIER APPRENTICE: None. ALLERGIES: NO KNOWN DRUG ALLERGIES. DISCHARGE PLAN: Posthospital, the patient will follow up with primary care physician in 1 week. HOSPITAL COURSE: A 38-year-old female, who has underlying history of asthma, who presented to emergency room with worsening shortness of breath. Prior to that, the patient was having flu-like illness and the patient's symptoms progressed. On admission, the patient had respiratory distress. She was barely meeting inpatient criteria and that is why we kept her as observation status. We treated her with Solu-Medrol, DuoNeb therapy, and Dulera. We also added Singulair on discharge which changed to p.o. prednisone tapering dose on discharge within 24 hours with optimum asthma treatment. The patient's condition significantly improved. She was on room air, ambulatory, tolerating p.o. well. The patient has underlying history of smoking and that is why we provided smoking cessation counseling. The patient was also empirically treated with Z-Casey. She has leukocytosis that is related with steroid. The patient is seen and examined at bedside today. The patient expressed her wish to go home that she is feeling completely normal. PHYSICAL EXAMINATION: VITAL SIGNS: Today, temperature 98.9, pulse 95, respiratory rate 18, saturations 95% on room air, blood pressure 105/62. Weight 179 pounds. GENERAL: The patient is currently alert, awake, in no acute distress. HEENT: Head, normocephalic and atraumatic. Eyes; pupils round and reactive to light. Extraocular muscle intact. ENT, oropharynx within normal limits. Moist mucous membranes. No oral lesion. No pharyngeal erythema. No exudate. NECK: Supple. No JVD. No meningeal signs of irritation. LUNGS: Clear to auscultation without any rhonchi or rales. CARDIAC: S1 and S2 regular. No murmur. No gallop. No rub. ABDOMEN: Soft. Bowel sounds present. Nontender. Nondistended. No organomegaly. No mass. EXTREMITIES: No edema. NEUROLOGIC: Nonfocal examination. Overall, the patient is medically stable for discharge today. Job ID: [id number]
[2019-06-04] MEDS ORDERED: FLU VACC QS2019-20(6MOS UP)/PF 60 MCG/0.5 ML SYRINGE IM ONE (13:30)
== END 2019-06-04 11:07 | disposition home or self-care (01) ==
LOC: ERS 04:48 → T4-A 06:02
PROVIDERS: ADMIT Internal Medicine; ATTEND Internal Medicine
DX: J45.41 Moderate persistent asthma with (acute) exacerbation (principal); F17.210 Nicotine dependence, cigarettes, uncomplicated; Z79.899 Other long term (current) drug therapy
CPT/HCPCS: 36415; 71045; 80048; 80053; 84703; 85025; 94640; 96374; 96375; 96376; G0378; J2920; J3475; J7611; J7620; J7626

== ENCOUNTER 2020-01-27 07:38 | Emergency (ER) | payer SELFPAY ==
[2020-01-27] MEDS ORDERED: diphenhydrAMINE 25 MG CAP ONE (08:17)
[2020-01-27] MEDS ORDERED: Dexamethasone 10 MG/ML VIAL ONE (08:17)
== END 2020-01-27 09:29 | disposition home or self-care (01) ==
LOC: ERS 07:38
DX: S60.862A Insect bite (nonvenomous) of left wrist, initial encounter (principal); S60.861A Insect bite (nonvenomous) of right wrist, initial encounter; S90.562A Insect bite (nonvenomous), left ankle, initial encounter; S90.561A Insect bite (nonvenomous), right ankle, initial encounter; J45.909 Unspecified asthma, uncomplicated; F17.210 Nicotine dependence, cigarettes, uncomplicated; Z79.899 Other long term (current) drug therapy; W57.XXXA Bitten or stung by nonvenomous insect and other nonvenomous arthropods, initial encounter
CPT/HCPCS: 96372; 99283; J1100; Q0163

== ENCOUNTER 2020-03-16 22:45 | Emergency (ER) | payer SELFPAY ==
[2020-03-16] MEDS ORDERED: Naproxen 500 MG TAB ONE (23:20)
[2020-03-16] MEDS ORDERED: Clindamycin 150 MG CAP ONE (23:20)
== END 2020-03-16 23:27 | disposition home or self-care (01) ==
LOC: ERS 22:45
DX: L03.211 Cellulitis of face (principal); K04.7 Periapical abscess without sinus; K02.9 Dental caries, unspecified; K03.81 Cracked tooth; J45.909 Unspecified asthma, uncomplicated; F17.210 Nicotine dependence, cigarettes, uncomplicated; Z79.899 Other long term (current) drug therapy
CPT/HCPCS: 99283

== ENCOUNTER 2020-04-20 19:16 | Emergency (ER) | payer SELFPAY ==
[2020-04-20] MEDS ORDERED: Albuterol 200 PUFF (6.7GM INHALER) ONE (19:20)
== END 2020-04-20 20:53 | disposition home or self-care (01) ==
LOC: ERS 19:16
DX: J45.901 Unspecified asthma with (acute) exacerbation (principal); F17.210 Nicotine dependence, cigarettes, uncomplicated
CPT/HCPCS: 99284

== ENCOUNTER 2020-09-24 09:27 | Emergency (ER) | payer BC, SELFPAY ==
[2020-09-24] MEDS ORDERED: methylPREDNISolone Sod Succ/PF 125 MG/2 ML VIAL ONE (09:46)
[2020-09-24] MEDS ORDERED: Magnesium 2 GM/50 ML BAG (IN WATER) ONE (09:46)
[2020-09-24 09:48] LABS: Actual Bicarbonate (HCO3v) 16 mEq/L (22-28); Analyzer IN Cardio ER; Base Excess -5.6 mEq/L (-2.0 to +3.0); Calcium, Ionized (venous) 1.07 mmol/L (1.16-1.32); Chloride (VBG) 108 mmol/L (98-106); Hemoglobin (Hb) 15.8 g/dL (11.7-15.5); Potassium (VBG) 4.34 mmol/L (3.70-5.30); Sodium 136.4 mmol/L (133-146); pH (venous) 7.46 (7.32-7.43)
[2020-09-24 09:52] LABS: #Basophils 0.2 thou/uL (0.0-0.2); #Eosinphils 0.6 thou/uL (0.0-0.7); #Lymphocytes 3.4 thou/uL (1.20-3.40); #Monocytes 0.8 thou/uL (0.11-0.59); #Neutrophils 14.8 thou/uL (1.40-6.50); %Basophils 0.8 % (0.0-1.0); %Eosinophils 2.8 % (0.0-10.0); %Lymphocytes 17.3 % (21.0-51.0); %Monocytes 4.2 % (0.0-10.0); %Neutrophils 74.9 % (42.0-75.0); Hemoglobin 15.3 g/dL (12.0-16.0); Mean Corpuscular HGB CONC 34.4 g/dL (32.0-36.0); Mean Corpuscular Hemoglobin 33.6 pg (27.0-31.0); Mean Corpuscular Volume 97.7 fL (78.0-98.0); Mean Platelet Volume 8.5 fL (7.4-10.4); Platelet Count 225 thou/uL (130-400); Red Blood Cell (RBC) Count 4.55 mill/uL (4.20-5.40); White Blood Cell (WBC) Count 19.8 thou/uL (4.8-10.8)
[2020-09-24] MEDS ORDERED: Albuterol Sulfate 2.5 mg/3 ml Neb ONE (09:54)
[2020-09-24] MEDS ORDERED: Albuterol Sulfate 2.5 mg/0.5 ml Neb ONE (09:54)
[2020-09-24] MEDS ORDERED: Terbutaline Sulfate 1 MG/ML VIAL ONE (10:01)
[2020-09-24 10:30] LABS: ALT (SGPT) 18 U/L (8-55); AST (SGOT) 20 U/L (5-34); Albumin 4.4 g/dL (3.5-5.0); Alkaline Phosphatase 67 U/L (40-110); Anion Gap 15 mmol/L (10-20); BUN (Urea Nitrogen) 8 mg/dL (7.0-18.7); Bilirubin, Total 0.5 mg/dL (0.2-1.2); Calc. Creatinine Clearance 0 mL/min (70-130); Calcium 9.3 mg/dL (7.8-10.44); Carbon Dioxide 19 mmol/L (22-29); Chloride 109 mmol/L (98-107); Globulin 2.5 g/dL (2.4-3.5); Glucose 89 mg/dL (70-105); Potassium 4.5 mmol/L (3.5-5.1); Protein, Total 6.9 g/dL (6.0-8.3); Sodium 138 mmol/L (136-145)
[2020-09-24 11:17] LABS: SARS-CoV-2 NAA Rapid Test Not Detected (NotDetected)
== END 2020-09-24 11:15 | disposition home or self-care (01) ==
LOC: ERS 09:27
DX: J45.901 Unspecified asthma with (acute) exacerbation (principal); F17.210 Nicotine dependence, cigarettes, uncomplicated; Z79.899 Other long term (current) drug therapy; Z20.822 Contact with and (suspected) exposure to COVID-19
CPT/HCPCS: 0240U; 71045; 80053; 82805; 85025; 93005; 94660; 96365; 96372; 96375; J2930; J3105; J3475; J7611

== ENCOUNTER 2020-10-29 06:17 | Inpatient (IN) | payer OTHER, SELFPAY ==
[2020-10-29 06:51] LABS: #Basophils 0.1 thou/uL (0.0-0.2); #Eosinphils 0.7 thou/uL (0.0-0.7); #Lymphocytes 1.7 thou/uL (1.20-3.40); #Monocytes 0.9 thou/uL (0.11-0.59); #Neutrophils 11.9 thou/uL (1.40-6.50); %Basophils 0.8 % (0.0-1.0); %Eosinophils 4.6 % (0.0-10.0); %Lymphocytes 10.8 % (21.0-51.0); %Neutrophils 77.8 % (42.0-75.0); Hemoglobin 9.5 g/dL (12.0-16.0); Mean Corpuscular HGB CONC 34.7 g/dL (32.0-36.0); Mean Corpuscular Hemoglobin 34.1 pg (27.0-31.0); Mean Corpuscular Volume 98.3 fL (78.0-98.0); Mean Platelet Volume 7.9 fL (7.4-10.4); Platelet Count 239 thou/uL (130-400); RBC Distribution Width 11.7 % (11.5-14.5); Red Blood Cell (RBC) Count 2.78 mill/uL (4.20-5.40); White Blood Cell (WBC) Count 15.3 thou/uL (4.8-10.8)
[2020-10-29] MEDS ORDERED: Albuterol Sulfate 2.5 mg/3 ml Neb ONE (06:55)
[2020-10-29 07:12] LABS: ALT (SGPT) 9 U/L (8-55); AST (SGOT) 16 U/L (5-34); Albumin 1.9 g/dL (3.5-5.0); Alkaline Phosphatase 30 U/L (40-110); Anion Gap 9 mmol/L (10-20); BUN (Urea Nitrogen) Less than 4 mg/dL (7.0-18.7); Bilirubin, Total 0.2 mg/dL (0.2-1.2); Calc. Creatinine Clearance 0 mL/min (70-130); Carbon Dioxide 10 mmol/L (22-29); Globulin 1.4 g/dL (2.4-3.5); Glucose 62 mg/dL (70-105); Protein, Total 3.3 g/dL (6.0-8.3); Sodium 145 mmol/L (136-145)
[2020-10-29] MEDS ORDERED: Azithromycin 500 MG VIAL ONE (07:15)
[2020-10-29] MEDS ORDERED: Ibuprofen 200 MG TAB ONE ×2 (07:15→07:34)
[2020-10-29] MEDS ORDERED: cefTRIAXone\\ROCEPHIN 1 GM VIAL ONE (07:15)
[2020-10-29 07:17] LABS: Calcium 4.4 mg/dL (7.8-10.44); Chloride 128 mmol/L (98-107); Potassium 2.2 mmol/L (3.5-5.1)
[2020-10-29 07:29] LABS: SARS-CoV-2 NAA Rapid Test Not Detected (NotDetected)
[2020-10-29 08:39] LABS: ALT (SGPT) 16 U/L (8-55); AST (SGOT) 28 U/L (5-34); Albumin 3.7 g/dL (3.5-5.0); Alkaline Phosphatase 65 U/L (40-110); Anion Gap 16 mmol/L (10-20); BUN (Urea Nitrogen) 5 mg/dL (7.0-18.7); Bilirubin, Total 0.4 mg/dL (0.2-1.2); Calc. Creatinine Clearance 0 mL/min (70-130); Calcium 8.4 mg/dL (7.8-10.44); Carbon Dioxide 15 mmol/L (22-29); Chloride 112 mmol/L (98-107); Globulin 2.6 g/dL (2.4-3.5); Glucose 95 mg/dL (70-105); Protein, Total 6.3 g/dL (6.0-8.3); Sodium 139 mmol/L (136-145)
[2020-10-29] MEDS ORDERED: Albuterol 200 PUFF (6.7GM INHALER) ONE (09:14)
[2020-10-29] MEDS ORDERED: Ondansetron ODT 4 MG TAB PO PRN (10:39)
[2020-10-29] MEDS ORDERED: Ondansetron PF 4 MG/2 ML Vial IVP PRN (10:39)
[2020-10-29] MEDS ORDERED: Acetaminophen 650 MG Suppository PR PRN (10:39)
[2020-10-29] MEDS ORDERED: Albuterol Sulfate 2.5 mg/3 ml Neb EZPAP PRN (10:41)
[2020-10-29] MEDS ORDERED: GUAIFENESIN SF SOLN 200 MG/10 ML UDCUP PO PRN (10:43)
[2020-10-29] MEDS ORDERED: Bacteriostatic Water 30 ML VIAL FS PRN (10:45)
[2020-10-29 11:19] VITALS: BMI 27.4
[2020-10-29] MEDS: methylPREDNISolone Sod Succ 40 MG VIAL IVP SCH ×2 (12:01→17:58)
[2020-10-29] MEDS: Acetaminophen 325 MG TAB PO PRN ×2 (12:07→17:58)
[2020-10-29 13:13] LABS: Lactic Acid 3.6 mmol/L (0.5-2.2)
[2020-10-30] MEDS: methylPREDNISolone Sod Succ 40 MG VIAL IVP SCH ×4 (00:02→18:22)
[2020-10-30 06:13] LABS: Anion Gap 14 mmol/L (10-20); BUN (Urea Nitrogen) 8 mg/dL (7.0-18.7); Calc. Creatinine Clearance 141 mL/min (70-130); Calcium 8.5 mg/dL (7.8-10.44); Carbon Dioxide 14 mmol/L (22-29); Chloride 115 mmol/L (98-107); Glucose 147 mg/dL (70-105); Potassium 4.8 mmol/L (3.5-5.1); Sodium 138 mmol/L (136-145)
[2020-10-30 06:29] LABS: Hemoglobin 13.1 g/dL (12.0-16.0); Mean Corpuscular HGB CONC 32.8 g/dL (32.0-36.0); Mean Corpuscular Hemoglobin 32.9 pg (27.0-31.0); Mean Platelet Volume 8.5 fL (7.4-10.4); Platelet Count 305 thou/uL (130-400); RBC Distribution Width 11.9 % (11.5-14.5); Red Blood Cell (RBC) Count 3.99 mill/uL (4.20-5.40)
[2020-10-30 06:51] LABS: Band 10 % (5-11); Lymphocytes 6 % (21-51); MDiff Complete? YES; Monocytes 1 % (0-10); Neutrophil 83 % (42-75)
[2020-10-30] MEDS: cefTRIAXone\\ROCEPHIN 1 GM in Sodium Chloride 0.9% 100 ML IVPB SCH (08:16)
[2020-10-30] MEDS: Azithromycin 500 MG in Sodium Chloride 0.9% 250 ML 250 ML IVPB SCH (10:25)
[2020-10-30 16:02] LABS: Band 7 % (5-11); Hemoglobin 13.2 g/dL (12.0-16.0); Lymphocytes 4 % (21-51); MDiff Complete? YES; Macrocytosis SLIGHT = 6-15 cells (100X) (0-5/hpf); Mean Corpuscular HGB CONC 31.8 g/dL (32.0-36.0); Mean Corpuscular Hemoglobin 31.9 pg (27.0-31.0); Mean Platelet Volume 8.7 fL (7.4-10.4); Monocytes 1 % (0-10); Neutrophil 86 % (42-75); Platelet Count 358 thou/uL (130-400); Platelet Morphology Comment Appears Adequate; Polychromasia SLIGHT = 2-3 cells (100X) (0-2/hpf); Reactive Lymphocytes 2 % (0-10); Red Blood Cell (RBC) Count 4.14 mill/uL (4.20-5.40); White Blood Cell (WBC) Count 37.9 thou/uL (4.8-10.8)
[2020-10-31] MEDS: methylPREDNISolone Sod Succ 40 MG VIAL IVP SCH ×3 (00:05→10:50)
[2020-10-31 06:25] LABS: Hemoglobin 12.7 g/dL (12.0-16.0); Mean Corpuscular HGB CONC 33.9 g/dL (32.0-36.0); Mean Corpuscular Hemoglobin 33.5 pg (27.0-31.0); Mean Corpuscular Volume 98.8 fL (78.0-98.0); Mean Platelet Volume 8.7 fL (7.4-10.4); Platelet Count 302 thou/uL (130-400); RBC Distribution Width 12.2 % (11.5-14.5); White Blood Cell (WBC) Count 34.4 thou/uL (4.8-10.8)
[2020-10-31 06:31] LABS: ALT (SGPT) 15 U/L (8-55); AST (SGOT) 10 U/L (5-34); Albumin 3.6 g/dL (3.5-5.0); Alkaline Phosphatase 59 U/L (40-110); Anion Gap 13 mmol/L (10-20); BUN (Urea Nitrogen) 10 mg/dL (7.0-18.7); Bilirubin, Total Less than 0.2 mg/dL (0.2-1.2); Calc. Creatinine Clearance 131 mL/min (70-130); Calcium 8.6 mg/dL (7.8-10.44); Carbon Dioxide 17 mmol/L (22-29); Chloride 113 mmol/L (98-107); Globulin 2.4 g/dL (2.4-3.5); Glucose 148 mg/dL (70-105); Potassium 4.7 mmol/L (3.5-5.1); Sodium 138 mmol/L (136-145)
[2020-10-31 06:48] LABS: Band 1 % (5-11); Lymphocytes 5 % (21-51); MDiff Complete? YES; Neutrophil 94 % (42-75)
[2020-10-31 07:48] VITALS: BP 116/67; TEMP 98.4
[2020-10-31] MEDS: cefTRIAXone\\ROCEPHIN 1 GM in Sodium Chloride 0.9% 100 ML IVPB SCH (08:06)
[2020-10-31] MEDS: Azithromycin 500 MG in Sodium Chloride 0.9% 250 ML 250 ML IVPB SCH (09:12)
== END 2020-10-31 14:04 | disposition home or self-care (01) | DRG 871 ==
LOC: ERS 06:17 → T4-B 09:34
PROVIDERS: ADMIT Family Medicine; ATTEND Internal Medicine
DX: A41.9 Sepsis, unspecified organism (principal); J18.9 Pneumonia, unspecified organism; J96.01 Acute respiratory failure with hypoxia; J45.51 Severe persistent asthma with (acute) exacerbation; E87.2 Acidosis; F17.210 Nicotine dependence, cigarettes, uncomplicated; E87.6 Hypokalemia; E83.51 Hypocalcemia; Z20.822 Contact with and (suspected) exposure to COVID-19; Z79.51 Long term (current) use of inhaled steroids; Z79.52 Long term (current) use of systemic steroids; Z79.899 Other long term (current) drug therapy; Z90.49 Acquired absence of other specified parts of digestive tract; Z98.51 Tubal ligation status
CPT/HCPCS: 36415; 71045; 80048; 80053; 83605; 85025; 85060; 87040; 88184; 90471; 90732; 93005; 94640; 94799; 96365; G0009; J0456; J0696; J2920; J3490; J7050; J7611; J7620; U0002; U0005

== ENCOUNTER 2021-06-06 08:41 | Observation (INO) | payer BC, OTHER ==
[2021-06-06] MEDS ORDERED: Azithromycin 500 MG VIAL ONE (09:12)
[2021-06-06 09:24] LABS: #Basophils 0.1 thou/uL (0.0-0.2); #Eosinphils 0.9 thou/uL (0.0-0.7); #Lymphocytes 3.3 thou/uL (1.20-3.40); #Monocytes 0.7 thou/uL (0.11-0.59); #Neutrophils 10.6 thou/uL (1.40-6.50); %Basophils 0.9 % (0.0-1.0); %Eosinophils 5.8 % (0.0-10.0); %Lymphocytes 21.2 % (21.0-51.0); %Monocytes 4.4 % (0.0-10.0); %Neutrophils 67.7 % (42.0-75.0); Hemoglobin 15.5 g/dL (12.0-16.0); Mean Corpuscular Hemoglobin 32.2 pg (27.0-31.0); Mean Corpuscular Volume 97.8 fL (78.0-98.0); Mean Platelet Volume 8.1 fL (7.4-10.4); Platelet Count 272 thou/uL (130-400); RBC Distribution Width 12.5 % (11.5-14.5); Red Blood Cell (RBC) Count 4.82 mill/uL (4.20-5.40); White Blood Cell (WBC) Count 15.7 thou/uL (4.8-10.8)
[2021-06-06 09:43] LABS: ALT (SGPT) 23 U/L (8-55); AST (SGOT) 18 U/L (5-34); Albumin 4.3 g/dL (3.5-5.0); Alkaline Phosphatase 70 U/L (40-110); Anion Gap 14 mmol/L (10-20); BUN (Urea Nitrogen) 6 mg/dL (7.0-18.7); Bilirubin, Total 0.4 mg/dL (0.2-1.2); CK (CPK) 65 U/L (29-168); Calc. Creatinine Clearance 0 mL/min (70-130); Calcium 8.6 mg/dL (7.8-10.44); Carbon Dioxide 20 mmol/L (22-29); Chloride 111 mmol/L (98-107); Globulin 2.7 g/dL (2.4-3.5); Glucose 114 mg/dL (70-105); Lipase 13 U/L (8-78); Potassium 3.9 mmol/L (3.5-5.1); Sodium 141 mmol/L (136-145)
[2021-06-06] MEDS ORDERED: Albuterol Sulfate 2.5 mg/0.5 ml Neb ONE (09:54)
[2021-06-06] MEDS ORDERED: Albuterol Sulfate 2.5 mg/3 ml Neb ONE (09:54)
[2021-06-06] MEDS ORDERED: Ondansetron ODT 4 MG TAB SL PRN (10:37)
[2021-06-06] MEDS ORDERED: Ondansetron PF 4 MG/2 ML Vial IVP PRN (10:37)
[2021-06-06] MEDS ORDERED: Albuterol Sulfate 2.5 mg/3 ml Neb NEB PRN ×2 (12:00→13:39)
[2021-06-06] MEDS ORDERED: Loratadine 10 MG TAB PO SCH (12:15)
[2021-06-06 12:29] VITALS: BMI 27.0
[2021-06-06] MEDS: Sodium Chloride 0.9% 1,000 ML IV SCH ×4 (12:46→23:26)
[2021-06-06] MEDS ORDERED: Albuterol Sulfate 2.5 mg/3 ml Neb NEB SCH (13:00)
[2021-06-06] MEDS ORDERED: Albuterol 200 PUFF (6.7GM INHALER) INH SCH (13:00)
[2021-06-06] MEDS ORDERED: Albuterol 200 PUFF (6.7GM INHALER) INH PRN (13:05)
[2021-06-06 13:08] LABS: Lactic Acid 3.7 mmol/L (0.5-2.2)
[2021-06-06 13:26] LABS: SARS-CoV-2 NAA Rapid Test Not Detected (NotDetected)
[2021-06-06] MEDS ORDERED: ALPRAZolam 0.25 MG TAB PO PRN (15:16)
[2021-06-06] MEDS: methylPREDNISolone Sod Succ 40 MG VIAL IVP SCH ×2 (17:00→23:26)
[2021-06-06] MEDS: Acetaminophen 500 MG TAB PO PRN (18:44)
[2021-06-06] MEDS: Famotidine 20 MG TAB PO SCH (20:03)
[2021-06-06] MEDS: Albuterol Sulfate 2.5 mg/3 ml Neb NEB SCH (20:13)
[2021-06-06] MEDS: Mometasone 200 MCG/Formoterol 5 MCG 120 PUFF INHALER INH SCH (20:14)
[2021-06-07] MEDS: Albuterol Sulfate 2.5 mg/3 ml Neb NEB SCH ×2 (01:23→07:48)
[2021-06-07] MEDS: methylPREDNISolone Sod Succ 40 MG VIAL IVP SCH (05:10)
[2021-06-07] MEDS: Acetaminophen 500 MG TAB PO PRN (05:10)
[2021-06-07 07:19] LABS: Anion Gap 9 mmol/L (10-20); BUN (Urea Nitrogen) 6 mg/dL (7.0-18.7); Calc. Creatinine Clearance 131 mL/min (70-130); Carbon Dioxide 19 mmol/L (22-29); Chloride 114 mmol/L (98-107); Glucose 147 mg/dL (70-105); Potassium 4.4 mmol/L (3.5-5.1); Sodium 138 mmol/L (136-145)
[2021-06-07 07:34] LABS: Band 9 % (5-11); Hemoglobin 14.3 g/dL (12.0-16.0); Lymphocytes 8 % (21-51); MDiff Complete? YES; Macrocytosis SLIGHT = 6-15 cells (100X) (0-5/hpf); Mean Corpuscular HGB CONC 32.3 g/dL (32.0-36.0); Mean Corpuscular Volume 98.9 fL (78.0-98.0); Mean Platelet Volume 8.8 fL (7.4-10.4); Monocytes 1 % (0-10); Neutrophil 82 % (42-75); Platelet Count 238 thou/uL (130-400); Platelet Morphology Comment Appears Adequate; Polychromasia SLIGHT = 2-3 cells (100X) (0-2/hpf); RBC Distribution Width 12.6 % (11.5-14.5); Red Blood Cell (RBC) Count 4.46 mill/uL (4.20-5.40); White Blood Cell (WBC) Count 27.4 thou/uL (4.8-10.8)
[2021-06-07 07:40] VITALS: BP 100/66; TEMP 98
[2021-06-07] MEDS: Mometasone 200 MCG/Formoterol 5 MCG 120 PUFF INHALER INH SCH (07:46)
[2021-06-07] MEDS: Famotidine 20 MG TAB PO SCH (07:57)
== END 2021-06-07 12:05 | disposition home or self-care (01) ==
LOC: ERS 08:41 → T4-A 10:58
PROVIDERS: ADMIT Internal Medicine; ATTEND Internal Medicine
DX: J45.901 Unspecified asthma with (acute) exacerbation (principal); F17.210 Nicotine dependence, cigarettes, uncomplicated; Z20.822 Contact with and (suspected) exposure to COVID-19
CPT/HCPCS: 0240U; 36415; 71045; 80048; 80053; 82550; 83605; 83690; 84484; 85025; 87040; 93005; 94640; 96365; 96375; 96376; G0378; J0456; J2920; J7050; J7611; J7620

== ENCOUNTER 2021-06-23 20:12 | Inpatient (IN) | payer BC ==
[~2021-06-23 20:12] MED LIST: Iopamidol 370 76% 100 ML VIAL ONE
[2021-06-23] MEDS ORDERED: Propofol 1,000 MG/100 ML VIAL IV ONE (20:18)
[2021-06-23] MEDS ORDERED: Fentanyl 100 MCG/2 ML VIAL ONE (20:18)
[2021-06-23] MEDS ORDERED: PROPOFOL 0 ML ONE (20:18)
[2021-06-23] MEDS ORDERED: Albuterol Sulfate 2.5 mg/0.5 ml Neb ONE (20:20)
[2021-06-23] MEDS ORDERED: Albuterol Sulfate 2.5 mg/3 ml Neb ONE (20:20)
[2021-06-23 20:35] LABS: #Basophils 0.2 thou/uL (0.0-0.2); #Eosinphils 0.6 thou/uL (0.0-0.7); #Lymphocytes 4.4 thou/uL (1.20-3.40); #Monocytes 1.6 thou/uL (0.11-0.59); #Neutrophils 19.2 thou/uL (1.40-6.50); %Basophils 0.6 % (0.0-1.0); %Eosinophils 2.4 % (0.0-10.0); %Lymphocytes 16.9 % (21.0-51.0); %Monocytes 6.2 % (0.0-10.0); %Neutrophils 73.8 % (42.0-75.0); Hemoglobin 13.7 g/dL (12.0-16.0); Mean Corpuscular HGB CONC 32.8 g/dL (32.0-36.0); Mean Corpuscular Hemoglobin 32.9 pg (27.0-31.0); Mean Platelet Volume 8.2 fL (7.4-10.4); Platelet Count 315 thou/uL (130-400); RBC Distribution Width 12.3 % (11.5-14.5); Red Blood Cell (RBC) Count 4.17 mill/uL (4.20-5.40)
[2021-06-23] MEDS ORDERED: fentaNYL Citrate/PF 2,000 MCG in Sodium Chloride 0.9% 60 ML IV SCH ×2 (20:45→23:30)
[2021-06-23] MEDS ORDERED: cefTRIAXone\\ROCEPHIN 2 GM VIAL ONE (20:54)
[2021-06-23 21:04] LABS: ALT (SGPT) 16 U/L (8-55); AST (SGOT) 27 U/L (5-34); Alkaline Phosphatase 68 U/L (40-110); Anion Gap 14 mmol/L (10-20); BUN (Urea Nitrogen) 5 mg/dL (7.0-18.7); Bilirubin, Total 0.4 mg/dL (0.2-1.2); Calc. Creatinine Clearance 0 mL/min (70-130); Calcium 8.3 mg/dL (7.8-10.44); Carbon Dioxide 21 mmol/L (22-29); Chloride 109 mmol/L (98-107); Globulin 2.8 g/dL (2.4-3.5); Glucose 199 mg/dL (70-105); Magnesium 2.3 mg/dL (1.6-2.6); Potassium 4.4 mmol/L (3.5-5.1); Protein, Total 6.8 g/dL (6.0-8.3); Sodium 140 mmol/L (136-145)
[2021-06-23 21:16] LABS: Actual Bicarbonate (HCO3a) 19.2 mEq/L (22-28); Analyzer IN Cardio ER; Base Excess (BEa) -11.2 mEq/L (-2.0 to +3.0); Calcium, Ionized (arterial) 1.12 mmol/L (1.12-1.30); Carboxyhemoglobin (COHb) 0.1 gm% (0.0-3.0); Hemoglobin (Hb) 13.3 g/dL (12.0-16.0); O2 Tension (PaO2), arterial 94.4 mmHg (80.0-100.0); Potassium - ABG Lab 4.18 mmol/L (3.70-5.30)
[2021-06-23] MEDS ORDERED: Lorazepam 2 MG/ML VIAL ONE (21:16)
[2021-06-23 21:48] LABS: SARS-CoV-2 NAA Rapid Test Not Detected (NotDetected)
[2021-06-23 21:52] LABS: CO2 Tension 63.4 mmHg (35.0-45.0)
[2021-06-23 21:53] LABS: Puncture Site RBA
[2021-06-23] MEDS ORDERED: DISCONTINUE PREVIOUS NARCOTIC PAIN MEDICATIONS AND BENZODIAZEPINES FS SCH (23:30)
[2021-06-23] MEDS ORDERED: Propofol BOLUS 1,000 MG/100 ML VIAL IV PRN (23:30)
[2021-06-23] MEDS ORDERED: Fentanyl BOLUS 250 ML IVPB PRN (23:30)
[2021-06-23] MEDS ORDERED: Sodium Chloride 0.9% 1,000 ML IV SCH (23:30)
[2021-06-23] MEDS ORDERED: Morphine 4 MG/ML VIAL SLOW IVP PRN (23:30)
[2021-06-23] MEDS ORDERED: Acetaminophen 325 MG TAB PO PRN (23:46)
[2021-06-23] MEDS ORDERED: Ondansetron PF 4 MG/2 ML Vial IVP PRN (23:46)
[2021-06-24] MEDS: methylPREDNISolone Sod Succ/PF 125 MG/2 ML VIAL IVP SCH ×5 (00:15→23:22)
[2021-06-24] MEDS ORDERED: Enoxaparin Sodium 80 MG/0.8 ML SYRINGE SC SCH (00:30)
[2021-06-24] MEDS: Propofol 1,000 MG/100 ML VIAL IV PRN ×2 (03:05→08:53)
[2021-06-24] MEDS ORDERED: Piperacillin/Tazobactam 3.375 GM in Sodium Chloride 0.9% 100 ML IVPB SCH ×2 (03:15→08:00)
[2021-06-24 03:27] LABS: #Lymphocytes 0.7 thou/uL (1.20-3.40); #Monocytes 0.1 thou/uL (0.11-0.59); #Neutrophils 16.9 thou/uL (1.40-6.50); %Basophils 0.1 % (0.0-1.0); %Eosinophils 0.1 % (0.0-10.0); %Lymphocytes 3.9 % (21.0-51.0); %Monocytes 0.6 % (0.0-10.0); %Neutrophils 95.4 % (42.0-75.0); Hemoglobin 12.8 g/dL (12.0-16.0); Mean Corpuscular HGB CONC 33.7 g/dL (32.0-36.0); Mean Corpuscular Hemoglobin 33.4 pg (27.0-31.0); Mean Corpuscular Volume 99.3 fL (78.0-98.0); Mean Platelet Volume 7.9 fL (7.4-10.4); Platelet Count 240 thou/uL (130-400); RBC Distribution Width 12.2 % (11.5-14.5); Red Blood Cell (RBC) Count 3.83 mill/uL (4.20-5.40); White Blood Cell (WBC) Count 17.7 thou/uL (4.8-10.8)
[2021-06-24 03:46] LABS: Anion Gap 10 mmol/L (10-20); BUN (Urea Nitrogen) 5 mg/dL (7.0-18.7); Calc. Creatinine Clearance 126 mL/min (70-130); Carbon Dioxide 21 mmol/L (22-29); Chloride 112 mmol/L (98-107); Glucose 145 mg/dL (70-105); Potassium 4.2 mmol/L (3.5-5.1); Sodium 139 mmol/L (136-145)
[2021-06-24] MEDS ORDERED: Vancomycin HCl 1.25 GM in Sodium Chloride 0.9% 250 ML 250 ML IVPB SCH (04:00)
[2021-06-24] MEDS: Lorazepam 2 MG/ML VIAL SLOW IVP PRN ×4 (04:31→14:17)
[2021-06-24] MEDS: Mometasone 200 MCG/Formoterol 5 MCG 120 PUFF INHALER INH SCH ×2 (07:09→18:44)
[2021-06-24] MEDS ORDERED: Magnesium Sulfate 4 GM in Sodium Chloride 0.9% 250 ML 250 ML IVPB SCH (08:30)
[2021-06-24 08:33] LABS: Magnesium 2.1 mg/dL (1.6-2.6)
[2021-06-24] MEDS: Enoxaparin Sodium 80 MG/0.8 ML SYRINGE SC SCH ×2 (08:53→20:26)
[2021-06-24] MEDS: Famotidine 20 MG TAB PO SCH ×2 (08:53→20:26)
[2021-06-24] MEDS ORDERED: Enoxaparin Sodium 40 MG/0.4 ML SYRINGE SC SCH (09:00)
[2021-06-24 09:21] LABS: Amphetamine Not Detected (NotDetected); Barbiturates Screen Not Detected (NotDetected); Benzodiazepine Screen Detected (NotDetected); Cocaine Metabolite Screen Not Detected (NotDetected); Methadone Not Detected (NotDetected); Methamphetamine Not Detected (NotDetected); Opiate Screen Not Detected (NotDetected); Oxycodone Screen Not Detected (NotDetected); Phencyclidine (PCP) Not Detected (NotDetected); THC/Cannabinoid Screen Not Detected (NotDetected); Tricyclic Screen Not Detected (NotDetected)
[2021-06-24] MEDS: Azithromycin 500 MG in Sodium Chloride 0.9% 250 ML 250 ML IVPB SCH (10:13)
[2021-06-24] MEDS: Lactated Ringer's 1,000 ML IV SCH (10:16)
[2021-06-24] MEDS: Dexmedetomidine In 0.9 % NaCl 100 ML IVPB SCH ×2 (11:37→17:51)
[2021-06-24] MEDS: Senokot S 8.6-50 MG TAB PO SCH (20:26)
[2021-06-25] MEDS: Dexmedetomidine In 0.9 % NaCl 100 ML IVPB SCH ×2 (00:45→08:01)
[2021-06-25] MEDS: Lorazepam 2 MG/ML VIAL SLOW IVP PRN ×2 (02:57→07:07)
[2021-06-25 04:41] LABS: #Lymphocytes 1.2 thou/uL (1.20-3.40); #Monocytes 0.7 thou/uL (0.11-0.59); #Neutrophils 15.1 thou/uL (1.40-6.50); %Eosinophils 0.1 % (0.0-10.0); %Lymphocytes 6.8 % (21.0-51.0); %Monocytes 3.9 % (0.0-10.0); %Neutrophils 89.1 % (42.0-75.0); Hemoglobin 11.8 g/dL (12.0-16.0); Mean Corpuscular HGB CONC 32.5 g/dL (32.0-36.0); Mean Corpuscular Hemoglobin 32.4 pg (27.0-31.0); Mean Corpuscular Volume 99.5 fL (78.0-98.0); Platelet Count 258 thou/uL (130-400); RBC Distribution Width 12.5 % (11.5-14.5); Red Blood Cell (RBC) Count 3.66 mill/uL (4.20-5.40)
[2021-06-25 04:58] LABS: Anion Gap 8 mmol/L (10-20); BUN (Urea Nitrogen) 12 mg/dL (7.0-18.7); Calc. Creatinine Clearance 142 mL/min (70-130); Calcium 8.1 mg/dL (7.8-10.44); Carbon Dioxide 25 mmol/L (22-29); Chloride 110 mmol/L (98-107); Glucose 185 mg/dL (70-105); Potassium 4.1 mmol/L (3.5-5.1); Sodium 139 mmol/L (136-145)
[2021-06-25] MEDS ORDERED: fentaNYL Citrate-0.9 % NaCl/PF 100 ML IV SCH (05:30)
[2021-06-25] MEDS: methylPREDNISolone Sod Succ/PF 125 MG/2 ML VIAL IVP SCH ×2 (05:34→12:39)
[2021-06-25] MEDS: Lactated Ringer's 1,000 ML IV SCH (05:37)
[2021-06-25] MEDS: Mometasone 200 MCG/Formoterol 5 MCG 120 PUFF INHALER INH SCH ×2 (07:04→20:00)
[2021-06-25 07:18] LABS: Actual Bicarbonate (HCO3a) 22.2 mEq/L (22-28); Base Excess (BEa) -1.3 mEq/L (-2.0 to +3.0); CO2 Tension 33.7 mmHg (35.0-45.0); Calcium, Ionized (arterial) 1.14 mmol/L (1.12-1.30); Carboxyhemoglobin (COHb) 0.3 gm% (0.0-3.0); O2 Tension (PaO2), arterial 139.6 mmHg (80.0-100.0); pH, Arterial 7.44 (7.35-7.45)
[2021-06-25 07:19] LABS: Puncture Site RBA
[2021-06-25 07:24] LABS: ALV-art Gradient 103.475 mmHg (0-20)
[2021-06-25] MEDS ORDERED: Piperacillin/Tazobactam 3.375 GM in Sodium Chloride 0.9% 100 ML IVPB SCH ×3 (07:45→17:00)
[2021-06-25] MEDS: Famotidine 20 MG TAB PO SCH ×3 (08:48→21:49)
[2021-06-25] MEDS: Enoxaparin Sodium 80 MG/0.8 ML SYRINGE SC SCH ×3 (08:48→21:47)
[2021-06-25] MEDS ORDERED: FLU VACC QS2021-22(6MOS UP)/PF 60 MCG/0.5 ML SYRINGE IM ONE (09:00)
[2021-06-25] MEDS ORDERED: Enoxaparin Sodium 40 MG/0.4 ML SYRINGE SC SCH (09:00)
[2021-06-25] MEDS: Azithromycin 500 MG in Sodium Chloride 0.9% 250 ML 250 ML IVPB SCH (09:02)
[2021-06-25] MEDS: Senokot S 8.6-50 MG TAB PO SCH ×3 (12:38→21:49)
[2021-06-25 13:00] LABS: Bacteria/HPF 4+ HPF (None Seen); Bilirubin Negative (Negative); Blood, Urine Negative (Negative); Glucose, Urine (Dipstick) Normal (Negative); Ketone, Urine Trace mg/dL (Negative); Leukocyte Negative Leu/uL (Negative); Nitrite Negative (Negative); Protein, Urine (Dipstick) Negative (Neg-Trace); RBC/HPF 0-3 HPF (0-3); Specific Gravity, Urine 1.015 (1.002-1.036); Squamous Epithelial 0-3 HPF (0-3); Urobilinogen Normal mg/dL (Less than 2); WBC/HPF 0-3 HPF (0-3); pH, Urine 5.5 (5.0-9.0)
[2021-06-25 13:02] LABS: Clarity Turbid (Clear)
[2021-06-25 13:03] LABS: Urine Culture Reflex Yes Yes
[2021-06-25] MEDS ORDERED: Vancomycin HCl 1.5 GM in Sodium Chloride 0.9% 250 ML 300 ML IVPB SCH (14:00)
[2021-06-25 15:17] VITALS: BMI 34.9
[2021-06-25] MEDS ORDERED: methylPREDNISolone Sod Succ/PF 125 MG/2 ML VIAL IVP SCH (21:00)
[2021-06-25] MEDS ORDERED: Acetaminophen 325 MG TAB PO PRN (21:13)
[2021-06-25] MEDS: methylPREDNISolone Sod Succ 40 MG VIAL IVP SCH (21:31)
[2021-06-25] MEDS: Vancomycin HCl 1.5 GM in Sodium Chloride 0.9% 250 ML 300 ML IVPB SCH (21:37)
[2021-06-26] MEDS: Lactated Ringer's 1,000 ML IV SCH (01:37)
[2021-06-26] MEDS: Piperacillin/Tazobactam 3.375 GM in Sodium Chloride 0.9% 100 ML IVPB SCH ×2 (01:37→11:34)
[2021-06-26] MEDS ORDERED: diphenhydrAMINE 25 MG CAP PO PRN (02:01)
[2021-06-26] MEDS: Mometasone 200 MCG/Formoterol 5 MCG 120 PUFF INHALER INH SCH (06:47)
[2021-06-26] MEDS ORDERED: predniSONE 20 MG TAB PO SCH (09:15)
[2021-06-26] MEDS: Senokot S 8.6-50 MG TAB PO SCH (10:03)
[2021-06-26] MEDS: Famotidine 20 MG TAB PO SCH (10:04)
[2021-06-26] MEDS: Azithromycin 500 MG in Sodium Chloride 0.9% 250 ML 250 ML IVPB SCH (11:04)
[2021-06-26] MEDS: Enoxaparin Sodium 80 MG/0.8 ML SYRINGE SC SCH (11:04)
[2021-06-26] MEDS: methylPREDNISolone Sod Succ 40 MG VIAL IVP SCH (11:05)
[2021-06-26] MEDS: Vancomycin HCl 1.5 GM in Sodium Chloride 0.9% 250 ML 300 ML IVPB SCH (11:34)
[2021-06-26 17:51] LABS: Actual Bicarbonate (HCO3a) 18.6 mEq/L (22-28); Base Excess (BEa) -6.9 mEq/L (-2.0 to +3.0); CO2 Tension 37.3 mmHg (35.0-45.0); Calcium, Ionized (arterial) 1.14 mmol/L (1.12-1.30); Carboxyhemoglobin (COHb) 0.1 gm% (0.0-3.0); Hemoglobin (Hb) 12.9 g/dL (12.0-16.0); O2 Tension (PaO2), arterial 92.3 mmHg (80.0-100.0); Potassium - ABG Lab 4.31 mmol/L (3.70-5.30); pH, Arterial 7.32 (7.35-7.45)
[2021-06-26 17:52] LABS: ALV-art Gradient 146.275 mmHg (0-20); Puncture Site RRA
[2021-06-26 19:36] VITALS: BP 133/87; TEMP 98.1
[2021-06-26] MEDS ORDERED: Apixaban 5 MG TAB PO SCH (21:00)
[2021-06-26] MEDS ORDERED: Cefdinir 300 MG CAP PO SCH (21:00)
[2021-06-27] MEDS ORDERED: predniSONE 20 MG TAB PO SCH (08:00)
== END 2021-06-26 10:51 | disposition left against medical advice (07) | DRG 208 ==
LOC: ERS 20:12 → CCU 22:04 → UNDODISIN 06-25 13:42 → T4-A 06-25 14:16
PROVIDERS: ADMIT Internal Medicine; ATTEND Internal Medicine
PROC: 0BH17EZ Insertion of Endotracheal Airway into Trachea, Via Natural or Artificial Opening (ICD-10-PCS; principal; 2021-06-23)
PROC: 5A1945Z Respiratory Ventilation, 24-96 Consecutive Hours (ICD-10-PCS; 2021-06-23)
DX: J45.902 Unspecified asthma with status asthmaticus (principal); I26.99 Other pulmonary embolism without acute cor pulmonale; J96.01 Acute respiratory failure with hypoxia; J96.02 Acute respiratory failure with hypercapnia; E87.2 Acidosis; J45.901 Unspecified asthma with (acute) exacerbation; Z20.822 Contact with and (suspected) exposure to COVID-19; E66.9 Obesity, unspecified; D72.829 Elevated white blood cell count, unspecified; F17.200 Nicotine dependence, unspecified, uncomplicated; Z79.51 Long term (current) use of inhaled steroids; Z90.49 Acquired absence of other specified parts of digestive tract; Z90.89 Acquired absence of other organs; Z98.51 Tubal ligation status; Z68.34 Body mass index [BMI] 34.0-34.9, adult
CPT/HCPCS: 36415; 36556; 36600; 51702; 71045; 71275; 80048; 80053; 80306; 81001; 82805; 83036; 83605; 83735; 84145; 84484; 85025; 85379; 87040; 87070; 87086; 87205; 93005; 94002; 94003; 94640; 94644; 96365; 96366; 96368; 96375; 96376; J0456; J0696; J1650; J2060; J2543; J2704; J2920; J2930; J3010; J3370; J3475; J3490; J7050; J7120; J7611; J7620; Q9967

== ENCOUNTER 2021-07-31 12:29 | Inpatient (IN) | payer BC ==
[2021-07-31] MEDS ORDERED: Albuterol Sulfate 1.25 MG/3 ML NEB ONE (12:50)
[2021-07-31] MEDS ORDERED: Albuterol Sulfate 2.5 mg/0.5 ml Neb ONE (12:53)
[2021-07-31] MEDS ORDERED: Ipratropium Bromide 2.5 ml Neb ONE ×2 (12:53→12:55)
[2021-07-31] MEDS ORDERED: EPINEPHrine 1 MG/ML VIAL ONE (12:55)
[2021-07-31 12:58] LABS: Hemoglobin 15.3 g/dL (12.0-16.0); Mean Corpuscular HGB CONC 31.7 g/dL (32.0-36.0); Mean Corpuscular Hemoglobin 31.7 pg (27.0-31.0); Mean Platelet Volume 8.3 fL (7.4-10.4); Platelet Count 323 thou/uL (130-400); RBC Distribution Width 12.5 % (11.5-14.5); Red Blood Cell (RBC) Count 4.84 mill/uL (4.20-5.40); White Blood Cell (WBC) Count 20.5 thou/uL (4.8-10.8)
[2021-07-31 13:14] LABS: Band 1 % (5-11); Eosinophils 2 % (0-10); Lymphocytes 10 % (21-51); MDiff Complete? YES; Monocytes 5 % (0-10); Neutrophil 80 % (42-75); Platelet Morphology Comment Appears Adequate; RBC Morphology Normal
[2021-07-31 13:20] LABS: ALT (SGPT) 16 U/L (8-55); AST (SGOT) 21 U/L (5-34); Albumin 4.5 g/dL (3.5-5.0); Alkaline Phosphatase 79 U/L (40-110); Anion Gap 16 mmol/L (10-20); BUN (Urea Nitrogen) 4 mg/dL (7.0-18.7); Bilirubin, Total 0.4 mg/dL (0.2-1.2); Calc. Creatinine Clearance 0 mL/min (70-130); Calcium 9.2 mg/dL (7.8-10.44); Carbon Dioxide 21 mmol/L (22-29); Chloride 109 mmol/L (98-107); Globulin 2.7 g/dL (2.4-3.5); Glucose 152 mg/dL (70-105); Potassium 3.7 mmol/L (3.5-5.1); Protein, Total 7.2 g/dL (6.0-8.3); Sodium 142 mmol/L (136-145)
[2021-07-31] MEDS ORDERED: Ondansetron PF 4 MG/2 ML Vial IVP PRN (15:00)
[2021-07-31] MEDS ORDERED: Ondansetron ODT 4 MG TAB PO PRN (15:00)
[2021-07-31] MEDS ORDERED: Acetaminophen 650 MG Suppository PR PRN (15:00)
[2021-07-31] MEDS ORDERED: Acetaminophen 325 MG TAB PO PRN (15:00)
[2021-07-31] MEDS ORDERED: Albuterol Sulfate 2.5 mg/3 ml Neb NEB PRN (15:03)
[2021-07-31] MEDS ORDERED: Magnesium 2 GM/50 ML(in water) 2 GM in Premix Bag 1 BAG IVPB SCH (15:15)
[2021-07-31] MEDS: methylPREDNISolone Sod Succ 40 MG VIAL IVP SCH ×2 (17:25→23:32)
[2021-08-01] MEDS: methylPREDNISolone Sod Succ 40 MG VIAL IVP SCH ×3 (05:42→17:19)
[2021-08-01 07:12] LABS: Anion Gap 12 mmol/L (10-20); BUN (Urea Nitrogen) 7 mg/dL (7.0-18.7); Calc. Creatinine Clearance 0 mL/min (70-130); Carbon Dioxide 19 mmol/L (22-29); Chloride 110 mmol/L (98-107); Glucose 139 mg/dL (70-105); Potassium 4.4 mmol/L (3.5-5.1); Sodium 137 mmol/L (136-145)
[2021-08-01 07:19] LABS: Hemoglobin 13.7 g/dL (12.0-16.0); Mean Corpuscular HGB CONC 31.9 g/dL (32.0-36.0); Mean Corpuscular Hemoglobin 31.8 pg (27.0-31.0); Mean Corpuscular Volume 99.8 fL (78.0-98.0); Mean Platelet Volume 8.4 fL (7.4-10.4); Platelet Count 274 thou/uL (130-400); RBC Distribution Width 12.7 % (11.5-14.5); Red Blood Cell (RBC) Count 4.31 mill/uL (4.20-5.40); White Blood Cell (WBC) Count 29.2 thou/uL (4.8-10.8)
[2021-08-01 08:09] LABS: MDiff Complete? YES
[2021-08-01 08:10] LABS: Band 1 % (5-11); Lymphocytes 5 % (21-51); Monocytes 2 % (0-10); Neutrophil 92 % (42-75); Platelet Morphology Comment Appears Adequate
[2021-08-01 08:27] VITALS: BP 106/68; TEMP 98.7
[2021-08-01] MEDS ORDERED: Enoxaparin Sodium 40 MG/0.4 ML SYRINGE SC SCH (09:00)
[2021-08-01] MEDS ORDERED: Folic Acid 1 MG TAB PO SCH (09:00)
[2021-08-01] MEDS ORDERED: Iopamidol-370 76% 500 ML 1 ML ONE (10:23)
[2021-08-01] MEDS ORDERED: Montelukast Sodium 10 mg Tablet PO SCH (21:00)
== END 2021-08-01 18:43 | disposition home or self-care (01) | DRG 189 ==
LOC: ERS 12:29 → T4-A 14:26
PROVIDERS: ADMIT Family Medicine; ATTEND Physician Assistant
DX: J96.01 Acute respiratory failure with hypoxia (principal); J45.51 Severe persistent asthma with (acute) exacerbation; Z20.822 Contact with and (suspected) exposure to COVID-19; F17.210 Nicotine dependence, cigarettes, uncomplicated; D72.829 Elevated white blood cell count, unspecified; Z79.51 Long term (current) use of inhaled steroids; Z79.52 Long term (current) use of systemic steroids; Z79.01 Long term (current) use of anticoagulants; Z79.899 Other long term (current) drug therapy; Z90.49 Acquired absence of other specified parts of digestive tract; Z98.51 Tubal ligation status; Z86.711 Personal history of pulmonary embolism; Z91.14 Patient's other noncompliance with medication regimen
CPT/HCPCS: 36415; 71045; 71275; 80048; 80053; 82607; 82746; 83880; 84145; 84484; 85025; 85379; 87633; 93005; 94640; 96372; J0171; J1650; J2920; J3475; J7611; J7620; Q9967

== ENCOUNTER 2021-08-25 06:28 | Inpatient (IN) | payer BC ==
[2021-08-25] MEDS ORDERED: Lorazepam 2 MG/ML VIAL ONE (06:31)
[2021-08-25] MEDS ORDERED: Ketorolac Tromethamine 30 MG/ML VIAL ONE (06:53)
[2021-08-25 07:05] LABS: #Basophils 0.1 thou/uL (0.0-0.2); #Eosinphils 0.3 thou/uL (0.0-0.7); #Lymphocytes 2.2 thou/uL (1.20-3.40); #Monocytes 1.7 thou/uL (0.11-0.59); #Neutrophils 24.9 thou/uL (1.40-6.50); %Basophils 0.4 % (0.0-1.0); %Eosinophils 1.1 % (0.0-10.0); %Lymphocytes 7.5 % (21.0-51.0); %Monocytes 5.8 % (0.0-10.0); %Neutrophils 85.2 % (42.0-75.0); Hemoglobin 15.4 g/dL (12.0-16.0); Mean Corpuscular Volume 99.9 fL (78.0-98.0); Mean Platelet Volume 8.2 fL (7.4-10.4); Platelet Count 337 thou/uL (130-400); RBC Distribution Width 12.5 % (11.5-14.5); Red Blood Cell (RBC) Count 4.67 mill/uL (4.20-5.40); White Blood Cell (WBC) Count 29.2 thou/uL (4.8-10.8)
[2021-08-25 07:11] LABS: BHCG - Serum Negative (NEGATIVE); Pregs Control Background? CLEAR/WHITE (CLR/WHITE); Pregs Control Bar Appear? YES (CONTROL BAR)
[2021-08-25] MEDS ORDERED: Albuterol Sulfate 2.5 mg/0.5 ml Neb ONE ×2 (07:12)
[2021-08-25 07:30] LABS: ALT (SGPT) 26 U/L (8-55); AST (SGOT) 31 U/L (5-34); Albumin 4.5 g/dL (3.5-5.0); Alkaline Phosphatase 73 U/L (40-110); Anion Gap 13 mmol/L (10-20); BUN (Urea Nitrogen) Less than 4 mg/dL (7.0-18.7); Bilirubin, Total 0.5 mg/dL (0.2-1.2); Calc. Creatinine Clearance 0 mL/min (70-130); Calcium 9.2 mg/dL (7.8-10.44); Carbon Dioxide 20 mmol/L (22-29); Chloride 111 mmol/L (98-107); Globulin 2.5 g/dL (2.4-3.5); Glucose 140 mg/dL (70-105); Sodium 140 mmol/L (136-145)
[2021-08-25 07:52] LABS: SARS-CoV-2 NAA Rapid Test Not Detected (NotDetected)
[2021-08-25] MEDS ORDERED: cefTRIAXone\\ROCEPHIN 2 GM VIAL ONE (08:46)
[2021-08-25] MEDS ORDERED: Azithromycin 500 MG VIAL ONE (08:46)
[2021-08-25 08:47] LABS: Actual Bicarbonate (HCO3v) 18 mEq/L (22-28); Analyzer IN Cardio ER; Base Excess -5.7 mEq/L (-2.0 to +3.0); Calcium, Ionized (venous) 1.12 mmol/L (1.16-1.32); Chloride (VBG) 112 mmol/L (98-106); Hemoglobin (Hb) 15.5 g/dL (11.7-15.5); Sodium 139.7 mmol/L (133-146); pH (venous) 7.37 (7.32-7.43)
[2021-08-25 10:24] LABS: Troponin I 0.012 ng/mL (< 0.028)
[2021-08-25] MEDS ORDERED: Calcium Carbonate 500 MG ChewTAB PO PRN (10:42)
[2021-08-25] MEDS ORDERED: Ondansetron ODT 4 MG TAB PO PRN (10:42)
[2021-08-25] MEDS ORDERED: Cepastat Lozenges 1 LOZ PO PRN (10:42)
[2021-08-25 11:18] VITALS: BMI 26.9
[2021-08-25] MEDS ORDERED: Magnesium 2 GM/50 ML(in water) 2 GM in Premix Bag 1 BAG IVPB SCH (11:45)
[2021-08-25] MEDS: Nicotine 14 MG PATCH TD SCH (12:29)
[2021-08-25] MEDS: Acetaminophen 325 MG TAB PO PRN (12:30)
[2021-08-25 13:09] LABS: Troponin I Less than 0.010 ng/mL (< 0.028)
[2021-08-25] MEDS: Mometasone/Formoterol 200/5 60 PUFF INH SCH (18:39)
[2021-08-26 00:13] VITALS: BP 95/56
[2021-08-26] MEDS ORDERED: Sodium Chloride 0.9% 500 ML IV SCH (01:00)
[2021-08-26 04:29] LABS: #Basophils 0.1 thou/uL (0.0-0.2); #Eosinphils 0.2 thou/uL (0.0-0.7); #Lymphocytes 3.5 thou/uL (1.20-3.40); #Monocytes 1.2 thou/uL (0.11-0.59); #Neutrophils 14.3 thou/uL (1.40-6.50); %Basophils 0.3 % (0.0-1.0); %Eosinophils 0.8 % (0.0-10.0); %Lymphocytes 18.3 % (21.0-51.0); %Monocytes 6.2 % (0.0-10.0); %Neutrophils 74.4 % (42.0-75.0); Mean Corpuscular Hemoglobin 33.7 pg (27.0-31.0); Mean Platelet Volume 8.8 fL (7.4-10.4); Platelet Count 234 thou/uL (130-400); RBC Distribution Width 12.5 % (11.5-14.5); Red Blood Cell (RBC) Count 3.86 mill/uL (4.20-5.40); White Blood Cell (WBC) Count 19.2 thou/uL (4.8-10.8)
[2021-08-26 04:35] LABS: Anion Gap 12 mmol/L (10-20); BUN (Urea Nitrogen) 4 mg/dL (7.0-18.7); Calc. Creatinine Clearance 139 mL/min (70-130); Calcium 8.5 mg/dL (7.8-10.44); Carbon Dioxide 20 mmol/L (22-29); Chloride 113 mmol/L (98-107); Glucose 98 mg/dL (70-105); Potassium 4.5 mmol/L (3.5-5.1); Sodium 140 mmol/L (136-145)
[2021-08-26] MEDS: Mometasone/Formoterol 200/5 60 PUFF INH SCH (08:15)
[2021-08-26] MEDS ORDERED: Azithromycin 250 MG TAB PO SCH (09:00)
[2021-08-26] MEDS ORDERED: methylPREDNISolone Sod Succ 40 MG VIAL IVP SCH (09:00)
[2021-08-26] MEDS ORDERED: Enoxaparin Sodium 40 MG/0.4 ML SYRINGE SC SCH (09:00)
[2021-08-26] MEDS: Acetaminophen 325 MG TAB PO PRN (10:28)
[2021-08-26 11:39] VITALS: TEMP 97.4
[2021-08-26] MEDS: Nicotine 14 MG PATCH TD SCH (11:59)
== END 2021-08-26 12:30 | disposition home or self-care (01) | DRG 189 ==
LOC: ERS 06:28 → IMCU/EMU 10:42
PROVIDERS: ADMIT Internal Medicine; ATTEND Internal Medicine
PROC: 5A09357 Assistance with Respiratory Ventilation, Less than 24 Consecutive Hours, Continuous Positive Airway Pressure (ICD-10-PCS; principal; 2021-08-25)
DX: J96.21 Acute and chronic respiratory failure with hypoxia (principal); J45.41 Moderate persistent asthma with (acute) exacerbation; Z20.822 Contact with and (suspected) exposure to COVID-19; F17.210 Nicotine dependence, cigarettes, uncomplicated; T38.0X5A Adverse effect of glucocorticoids and synthetic analogues, initial encounter; D72.829 Elevated white blood cell count, unspecified; Z79.01 Long term (current) use of anticoagulants; Z79.51 Long term (current) use of inhaled steroids; Z79.52 Long term (current) use of systemic steroids; Z79.899 Other long term (current) drug therapy; Z90.49 Acquired absence of other specified parts of digestive tract; Z90.09 Acquired absence of other part of head and neck; Z98.51 Tubal ligation status
CPT/HCPCS: 36415; 71045; 80048; 80053; 82805; 83605; 83880; 84484; 84703; 85025; 87040; 93005; 93010; 94640; 94660; 96365; 96368; 96375; J0456; J0696; J1885; J2060; J2920; J3475; J7611; J7620; U0002

== ENCOUNTER 2021-12-13 05:27 | Observation (INO) | payer BC ==
[2021-12-13] MEDS ORDERED: Albuterol Sulfate 2.5 mg/0.5 ml Neb ONE (05:42)
[2021-12-13] MEDS ORDERED: methylPREDNISolone Sod Succ/PF 125 MG/2 ML VIAL ONE (05:43)
[2021-12-13] MEDS ORDERED: Magnesium 2 GM/50 ML BAG (IN WATER) ONE (05:43)
[2021-12-13 06:22] LABS: Actual Bicarbonate (HCO3v) 19 mEq/L (22-28); Base Excess -6.6 mEq/L (-2.0 to +3.0); Calcium, Ionized (venous) 1.12 mmol/L (1.16-1.32); Chloride (VBG) 109 mmol/L (98-106); Hemoglobin (Hb) 17.4 g/dL (11.7-15.5); Potassium (VBG) 4.64 mmol/L (3.70-5.30); Sodium 139.6 mmol/L (133-146)
[2021-12-13 06:23] LABS: Hemoglobin 17.1 g/dL (12.0-16.0); Mean Corpuscular HGB CONC 33.9 g/dL (32.0-36.0); Mean Corpuscular Hemoglobin 33.5 pg (27.0-31.0); Mean Corpuscular Volume 98.7 fL (78.0-98.0); Mean Platelet Volume 8.8 fL (7.4-10.4); Platelet Count 239 thou/uL (130-400); RBC Distribution Width 12.7 % (11.5-14.5); White Blood Cell (WBC) Count 20.5 thou/uL (4.8-10.8)
[2021-12-13 06:26] LABS: BHCG - Serum Negative (NEGATIVE); Pregs Control Background? CLEAR/WHITE (CLR/WHITE); Pregs Control Bar Appear? YES (CONTROL BAR)
[2021-12-13] MEDS ORDERED: cefTRIAXone\\ROCEPHIN 1 GM VIAL ONE (06:31)
[2021-12-13 06:41] LABS: Band 4 % (5-11); Eosinophils 2 % (0-10); Lymphocytes 12 % (21-51); MDiff Complete? YES; Monocytes 5 % (0-10); Neutrophil 77 % (42-75)
[2021-12-13 06:46] LABS: ALT (SGPT) 37 U/L (8-55); AST (SGOT) 44 U/L (5-34); Albumin 4.8 g/dL (3.5-5.0); Alkaline Phosphatase 93 U/L (40-110); Anion Gap 15 mmol/L (10-20); BUN (Urea Nitrogen) 7 mg/dL (7.0-18.7); Bilirubin, Total 0.6 mg/dL (0.2-1.2); Calc. Creatinine Clearance 0 mL/min (70-130); Calcium 9.4 mg/dL (7.8-10.44); Carbon Dioxide 20 mmol/L (22-29); Chloride 109 mmol/L (98-107); Estimated GFR 88; Globulin 3.6 g/dL (2.4-3.5); Glucose 93 mg/dL (70-105); Potassium 4.7 mmol/L (3.5-5.1); Protein, Total 8.4 g/dL (6.0-8.3); Sodium 139 mmol/L (136-145)
[2021-12-13] MEDS ORDERED: Azithromycin 500 MG VIAL ONE (06:47)
[2021-12-13 07:06] LABS: SARS-CoV-2 NAA Rapid Test Not Detected (NotDetected)
[2021-12-13] MEDS ORDERED: Acetaminophen 325 MG TAB PO PRN (07:58)
[2021-12-13] MEDS ORDERED: Ondansetron PF 4 MG/2 ML Vial IVP PRN (07:58)
[2021-12-13] MEDS ORDERED: Magnesium 2 GM/50 ML(in water) 2 GM in Premix Bag 1 BAG IVPB SCH (08:15)
[2021-12-13 13:57] VITALS: BMI 25.8
[2021-12-13] MEDS: Mometasone/Formoterol 200/5 60 PUFF INH SCH ×2 (13:59→18:41)
[2021-12-13] MEDS: Pantoprazole 40 MG VIAL IVP SCH (13:59)
[2021-12-13] MEDS: Enoxaparin Sodium 40 MG/0.4 ML SYRINGE SC SCH (13:59)
[2021-12-13] MEDS: methylPREDNISolone Sod Succ 40 MG VIAL IVP SCH ×2 (14:02→17:51)
[2021-12-14] MEDS: methylPREDNISolone Sod Succ 40 MG VIAL IVP SCH ×2 (00:34→05:32)
[2021-12-14 06:32] LABS: #Basophils 0.1 thou/uL (0.0-0.2); #Lymphocytes 1.5 thou/uL (1.20-3.40); #Monocytes 0.6 thou/uL (0.11-0.59); #Neutrophils 24.2 thou/uL (1.40-6.50); %Basophils 0.4 % (0.0-1.0); %Eosinophils 0.1 % (0.0-10.0); %Lymphocytes 5.7 % (21.0-51.0); %Monocytes 2.1 % (0.0-10.0); %Neutrophils 91.7 % (42.0-75.0); Hemoglobin 13.8 g/dL (12.0-16.0); Mean Corpuscular HGB CONC 32.5 g/dL (32.0-36.0); Mean Corpuscular Hemoglobin 32.6 pg (27.0-31.0); Mean Platelet Volume 9.2 fL (7.4-10.4); Platelet Count 253 thou/uL (130-400); RBC Distribution Width 12.7 % (11.5-14.5); Red Blood Cell (RBC) Count 4.24 mill/uL (4.20-5.40); White Blood Cell (WBC) Count 26.4 thou/uL (4.8-10.8)
[2021-12-14] MEDS: Mometasone/Formoterol 200/5 60 PUFF INH SCH (06:47)
[2021-12-14 08:18] VITALS: BP 116/73; TEMP 98.1
[2021-12-14] MEDS: Pantoprazole 40 MG VIAL IVP SCH (09:55)
[2021-12-14] MEDS: Enoxaparin Sodium 40 MG/0.4 ML SYRINGE SC SCH (09:55)
== END 2021-12-14 09:58 | disposition home or self-care (01) ==
LOC: ERS 05:27 → SUATTDRO 05:27 → ERHOLD 08:02 → T4-B 13:51
PROVIDERS: ADMIT Internal Medicine; ATTEND Internal Medicine
DX: J45.901 Unspecified asthma with (acute) exacerbation (principal); J96.21 Acute and chronic respiratory failure with hypoxia; F17.210 Nicotine dependence, cigarettes, uncomplicated; Z79.899 Other long term (current) drug therapy; Z20.822 Contact with and (suspected) exposure to COVID-19
CPT/HCPCS: 36415; 71045; 80053; 82805; 83605; 84484; 84703; 85025; 87040; 87070; 87205; 93005; 94640; 94664; 96365; 96375; J0456; J0696; J2920; J2930; J3475; J7611; J7620; U0002

== ENCOUNTER 2023-04-23 15:43 | Day surgery (SDC) | payer OTHER ==
[2023-04-24 16:22] VITALS: BMI 26.3
[2023-04-24 16:29] LABS: Hemoglobin A1c 5.5 % (4.0-6.0)
[2023-04-24] MEDS ORDERED: Acetaminophen 500 MG TAB PER TUBE PRN (16:44)
[2023-04-24] MEDS ORDERED: Hydrocortisone Sod Succ/PF 500 mg/4 ml Vial SLOW IVP SCH (16:45)
[2023-04-24 16:48] LABS: Actual Bicarbonate (HCO3a) 34.3 mEq/L (22-28); Base Excess (BEa) 6.9 mEq/L (-2.0 to +3.0); Calcium, Ionized (arterial) 1.23 mmol/L (1.12-1.30); Carboxyhemoglobin (COHb) 0.5 gm% (0.0-3.0); Hematocrit-ABG 35 % (36.0-47.0); O2 Tension (PaO2), arterial 63.3 mmHg (80.0-100.0); Potassium - ABG Lab 4.29 mmol/L (3.70-5.30); pH, Arterial 7.348 (7.35-7.45)
[2023-04-24 16:50] LABS: CO2 Tension 63.9 mmHg (35.0-45.0); Puncture Site RRA
[2023-04-24] MEDS ORDERED: NOREPINEPHRINE 8 MG/250 ML-D5W 250 ML IVPB SCH (17:00)
[2023-04-24] MEDS ORDERED: Phenylephrine 40 MG/NS 250 ML 40 MG in Premix 1 BAG IVPB SCH (17:00)
[2023-04-24 17:07] LABS: Hematocrit 35.6 % (36.0-47.0); Hemoglobin 10.9 g/dL (12.0-16.0); Manual Diff?? YES; Mean Corpuscular HGB CONC 30.6 g/dL (32.0-36.0); Mean Corpuscular Hemoglobin 32.7 pg (27.0-31.0); Mean Corpuscular Volume 106.9 fl (78.0-98.0); Mean Platelet Volume 12.2 fL (7.4-10.4); RBC Distribution Width 15.1 % (11.5-14.5); Red Blood Cell (RBC) Count 3.33 mill/uL (4.20-5.40); White Blood Cell (WBC) Count 7.1 10x3/uL (4.8-10.8)
[2023-04-24] MEDS: Piperacillin/Tazobactam 3.375 GM in Sodium Chloride 0.9% 100 ML IVPB SCH ×2 (17:07→23:06)
[2023-04-24 17:09] LABS: Bacteria/HPF None Seen HPF (None Seen); RBC/HPF 0-3 HPF (0-3); Squamous Epithelial 0-3 HPF (0-3); WBC/HPF 0-3 HPF (0-3)
[2023-04-24 17:16] LABS: Delete Auto Diff?? YES; Platelet Count 75 10x3/uL (130-400)
[2023-04-24 17:32] LABS: Bilirubin Small (Negative); Blood, Urine Large (Negative); Glucose, Urine (Dipstick) Negative (Negative); Ketone, Urine Negative (Negative); Leukocyte Negative (Negative); Nitrite Negative (Negative); Protein, Urine (Dipstick) 30 mg/dL (Neg-Trace); Urobilinogen 0.2 mg/dL (Less than 2); pH, Urine 6.5 (5.0-9.0)
[2023-04-24 17:35] LABS: Clarity Hazy (Clear); Phosphorus 1.1 mg/dL (2.3-4.7)
[2023-04-24 17:36] LABS: ALT (SGPT) 727 U/L (8-55); AST (SGOT) 388 U/L (5-34); Albumin 2.7 g/dL (3.5-5.0); Alkaline Phosphatase 90 U/L (40-110); BUN (Urea Nitrogen) 26 mg/dL (7.0-18.7); Bilirubin, Total 0.5 mg/dL (0.2-1.2); Calc. Creatinine Clearance 90 mL/min (70-130); Carbon Dioxide 35 mmol/L (22-29); Chloride 138 mmol/L (98-107); Estimated GFR 81; Globulin 1.6 g/dL (2.4-3.5); Glucose 190 mg/dL (70-105); Potassium 4.4 mmol/L (3.5-5.1); Protein, Total 4.3 g/dL (6.0-8.3); Sodium Greater than 175 mmol/L (136-145)
[2023-04-24] MEDS ORDERED: Vasopressin 20 UNITS, Admixture Fee 1 EACH in Sodium Chloride 0.9% 50 ML IV SCH (17:45)
[2023-04-24] MEDS: Dextrose 5% in Water 1,000 ML IV SCH (18:02)
[2023-04-24 18:08] LABS: INR-International Normal Ratio 1.4; PTT 26.8 sec (22.9-36.1); Prothrombin Time 18.1 sec (12.0-14.7)
[2023-04-24] MEDS: Albuterol 2.5 MG (0.5 mL) NEB NEB SCH ×2 (18:33→22:46)
[2023-04-24 18:54] LABS: Band 19 % (5-11); Lymphocytes 18 % (21-51); Monocytes 5 % (0-10); Neutrophil 58 % (42-75); Nucleated RBC (Manual Ct) 2 % (0); Platelet Adequacy Comment Platelets Decreased; Polychromasia SLIGHT = 2-3 cells (100X) (0-2/hpf)
[2023-04-24] MEDS ORDERED: Sodium Phosphate 30 MMOL in Sodium Chloride 0.9% 250 ML 250 ML IVPB SCH (19:00)
[2023-04-25] MEDS: Dextrose 5% in Water 1,000 ML IV SCH ×2 (00:39→07:31)
[2023-04-25] MEDS: Hydrocortisone Sod Succ/PF 100 mg/2 ml Vial IVP SCH ×2 (02:04→09:59)
[2023-04-25] MEDS: Albuterol 2.5 MG (0.5 mL) NEB NEB SCH ×3 (02:44→11:04)
[2023-04-25 04:51] LABS: Hematocrit 33.7 % (36.0-47.0); Hemoglobin 10.1 g/dL (12.0-16.0); Manual Diff?? YES; Mean Corpuscular Hemoglobin 32.3 pg (27.0-31.0); Mean Corpuscular Volume 107.7 fl (78.0-98.0); Mean Platelet Volume 12.4 fL (7.4-10.4); RBC Distribution Width 15.3 % (11.5-14.5); Red Blood Cell (RBC) Count 3.13 mill/uL (4.20-5.40)
[2023-04-25 05:05] LABS: Actual Bicarbonate (HCO3a) 31.9 mEq/L (22-28); Calcium, Ionized (arterial) 1.15 mmol/L (1.12-1.30); Carboxyhemoglobin (COHb) 0.2 gm% (0.0-3.0); Hematocrit-ABG 31 % (36.0-47.0); Hemoglobin (Hb) 10.5 g/dL (12.0-16.0); O2 Tension (PaO2), arterial 265.1 mmHg (80.0-100.0); Potassium - ABG Lab 3.34 mmol/L (3.70-5.30); pH, Arterial 7.343 (7.35-7.45)
[2023-04-25 05:05] LABS: INR-International Normal Ratio 1.5; PTT 28.5 sec (22.9-36.1); Platelet Count 51 10x3/uL (130-400); Prothrombin Time 18.8 sec (12.0-14.7)
[2023-04-25] MEDS: Piperacillin/Tazobactam 3.375 GM in Sodium Chloride 0.9% 100 ML IVPB SCH ×2 (05:05→10:48)
[2023-04-25 05:06] LABS: CO2 Tension 60.1 mmHg (35.0-45.0); Puncture Site RRA
[2023-04-25 05:09] LABS: Delete Auto Diff?? YES
[2023-04-25 05:17] LABS: ALT (SGPT) 623 U/L (8-55); AST (SGOT) 312 U/L (5-34); Albumin 2.3 g/dL (3.5-5.0); Alkaline Phosphatase 82 U/L (40-110); Anion Gap 10 mmol/L (10-20); BUN (Urea Nitrogen) 34 mg/dL (7.0-18.7); Bilirubin, Total 0.6 mg/dL (0.2-1.2); Calc. Creatinine Clearance 86 mL/min (70-130); Calcium 7.5 mg/dL (7.8-10.44); Carbon Dioxide 35 mmol/L (22-29); Chloride 130 mmol/L (98-107); Estimated GFR 74; Glucose 239 mg/dL (70-105); Magnesium 2.7 mg/dL (1.6-2.6); Phosphorus 3.2 mg/dL (2.3-4.7); Potassium 3.4 mmol/L (3.5-5.1); Protein, Total 4.3 g/dL (6.0-8.3); Sodium 172 mmol/L (136-145)
[2023-04-25 06:06] LABS: Band 5 % (5-11); Lymphocytes 20 % (21-51); Monocytes 6 % (0-10); Neutrophil 69 % (42-75)
[2023-04-25 06:07] LABS: Hypochromia SLIGHT = 6-15 cells (100X) (0-5/hpf); Macrocytosis MODERATE=16-30 cells (100X) (0-5/hpf)
[2023-04-25 06:08] LABS: Anisocytosis SLIGHT = 6-15 cells (100X) (0-5/hpf); Platelet Adequacy Comment Significant decrease; Polychromasia SLIGHT = 2-3 cells (100X) (0-2/hpf)
[2023-04-25 08:08] VITALS: TEMP 97.7
[2023-04-25] MEDS ORDERED: Potassium Chloride 20 MEQ in Premix 1 BAG IVPB SCH (08:15)
[2023-04-25] MEDS ORDERED: Insulin Regular 300 UNITS/3 ML VIAL SC SCH (10:00)
[2023-04-25 11:04] VITALS: BP 98/60
== END 2023-04-25 12:04 | disposition expired ==
LOC: SJX 15:43 → CCU 04-24 16:28 → SJX 04-25 12:04
PROVIDERS: ATTEND Radiology Diagnostic Radiology
DX: J90 Pleural effusion, not elsewhere classified (principal); Z52.89 Donor of other specified organs or tissues
CPT/HCPCS: 36415; 36416; 36600; 71045; 80053; 81003; 81015; 82248; 82805; 83036; 83735; 84100; 85025; 85610; 85730; 93005; 93010; 94003; 94640; J1720; J1815; J2543; J3480; J3490; J7050; J7070; J7611